=== PATIENT | male | born 1960 | race Caucasian/White ===

== ENCOUNTER 2018-12-12 14:30 | Observation (INO) | payer OTHER ==
[2018-12-12] MEDS ORDERED: ASPIRIN 81 MG CHEW TAB PO ONE ×2 (15:00→17:15)
[2018-12-12 15:25] LABS: BASOPHILS % 0.4 % (0.0-1.0); EOSINOPHILS # (AUTO) 0.1 (0.0-0.4); EOSINOPHILS % 1.2 % (0.0-6.0); HEMATOCRIT 41.3 % (38.2-49.6); HEMOGLOBIN 14.2 g/dL (14.0-18.0); LYMPHOCYTES # (AUTO) 2.1 (1.0-3.2); LYMPHOCYTES % 22.6 % (18.0-39.1); MEAN CORPUSCULAR HEMOGLOBIN 32.9 pg (28-32); MEAN CORPUSCULAR HGB CONC 34.4 g/dL (31-35); MEAN CORPUSCULAR VOLUME 95.8 fL (81-99); MONOCYTES # (AUTO) 0.7 (0.2-0.8); MONOCYTES % 7.8 % (4.4-11.3); NEUTROPHILS # (AUTO) 6.4 (2.1-6.9); NEUTROPHILS % 67.7 % (38.7-80.0); PLATELET COUNT 234 x10e3/uL (140-360); RED BLOOD COUNT 4.31 x10e6/uL (4.3-5.7); RED CELL DISTRIBUTION WIDTH 12.6 % (11.7-14.4)
[2018-12-12 15:26] LABS: BILIRUBIN,URINE NEGATIVE (NEGATIVE); CLARITY,URINE CLEAR (CLEAR); COLOR,URINE YELLOW (YELLOW); KETONES,URINE NEGATIVE (NEGATIVE); LEUKOCYTE ESTERASE ,URINE NEGATIVE (NEGATIVE); NITRITE,URINE NEGATIVE (NEGATIVE); PROTEIN,URINE DIPSTICK NEGATIVE (NEGATIVE); URINE UROBILINOGEN 0.2 mg/dL (0.2 - 1)
[2018-12-12 15:41] LABS: INR 0.94; PARTIAL THROMBOPLASTIN TIME 28.1 seconds (23.8-35.5); PROTHROMBIN TIME 13.1 seconds (11.9-14.5)
[2018-12-12 15:49] LABS: EPITHELIAL CELLS,URINE FEW /LPF; RBC,URINE 0-5 /HPF (0-5); TRANSITIONAL EPI CELLS,URINE RARE; WBC,URINE (MAN) 0-5 /HPF (0-5)
[2018-12-12 15:53] LABS: ALANINE AMINOTRANSFERASE 19 IU/L (0-55); ALBUMIN 4.2 g/dL (3.5-5.0); ALBUMIN/GLOBULIN RATIO 1.4 (0.8-2.0); ALKALINE PHOSPHATASE 86 IU/L (40-150); ANION GAP 12.4 mmol/L (8-16); BLOOD UREA NITROGEN 12 mg/dL (7-26); BUN/CREATININE RATIO 11 (6-25); CALCIUM 9.7 mg/dL (8.4-10.2); CARBON DIOXIDE 27 mmol/L (22-29); CHLORIDE 101 mmol/L (98-107); CREATINE KINASE 112 IU/L (30-200); CREATININE, SERUM 1.09 mg/dL (0.72-1.25); EST GLOMERULAR FILTRATION RATE > 60 ML/MIN (60-); GLUCOSE 103 mg/dL (74-118); MAGNESIUM 2.2 MG/DL (1.3-2.1); POTASSIUM 3.4 mmol/L (3.5-5.1); SODIUM 137 mmol/L (136-145)
--- NOTE | 2018-12-12 15:58 | Diagnostic Imaging Report ---
Chest, 1 view, 12/12/2018. History: Left-sided chest pain. Comparison: None available. Findings: The cardiomediastinal silhouette and pulmonary vasculature are within normal limits for a portable exam. There is no focal consolidation or pleural effusion. There are no acute osseous or soft tissue abnormalities. Impression: No acute cardiopulmonary abnormality. Signed by: Jose Gonzalez on 12/12/2018 3:55 PM
[2018-12-12] MEDS ORDERED: FAMOTIDINE 20 MG/2 ML VIAL IV SCH (17:15)
[2018-12-12] MEDS ORDERED: NITROGLYCERIN 0.4 MG SUBL SL PRN (17:15)
[2018-12-12] MEDS ORDERED: ASPIR 8181 MG PO (17:53)
[2018-12-12] MEDS ORDERED: BYSTOLIC2.5 MG PO (17:53)
[2018-12-12] MEDS ORDERED: LEVOTHYROXINE100 MCG PO (17:53)
[2018-12-12] MEDS ORDERED: CRESTOR5 MG PO (17:53)
[2018-12-12] MEDS ORDERED: ALFUZOSIN HCL10 MG PO (17:53)
--- NOTE | 2018-12-12 19:04 | NUR ---
Walking rounds with ERLINDA Wellington. Patient in no distress at this time.
[2018-12-12 23:45] LABS: CREATINE KINASE 91 IU/L (30-200)
--- NOTE | 2018-12-13 | NUR ---
pt moved to room 4, air mattress placed on bed for comfort, denies any chest pain or sob, states feels much better. awake alert skin w/d resp nonlab. nad noted.
--- NOTE | 2018-12-13 04:45 | NUR ---
resting with eyes closed, easily aroused, skin w/d resp nonlab. nad noted. am labs collected and sent
--- NOTE | 2018-12-13 06:59 | NUR ---
REPORT TO JANINERN
[2018-12-13 07:29] LABS: CREATINE KINASE 97 IU/L (30-200)
--- NOTE | 2018-12-13 08:58 | NUR ---
Spoke to Dr. Hale per request of Dr. Castorena to schedule stress today. Per Dr. Hale, he's in the hospital now and will be in to see patient shortly to decide
[2018-12-13] MEDS ORDERED: FAMOTIDINE 20 MG/2 ML VIAL IV SCH (09:00)
[2018-12-13] MEDS ORDERED: REGADENOSON 0.4 MG/5 ML SYR IV ONE (09:13)
--- NOTE | 2018-12-13 09:24 | NUR ---
Patient sent for stress test; consent place on chart
--- NOTE | 2018-12-13 11:22 | NUR ---
Patient not back from stress test yet. awaiting return
--- NOTE | 2018-12-13 11:45 | NUR ---
REPORT RECEIVED FROM ERLINDA FOURNIER. PT REMAINS IN RADIOLOGY AT THIS TIME.
--- NOTE | 2018-12-13 12:30 | NUR ---
PT IN ROOM AT THIS TIME, RESTING IN BED, NO NEEDS VOICED AT THIS TIME, DENIES PAIN, BREATHING EVEN/UNLABORED.
--- NOTE | 2018-12-13 13:10 | NUR ---
PT GIVEN ICE WATER PER REQUEST AT THIS TIME.
--- NOTE | 2018-12-13 15:19 | History and Physical ---
CHIEF COMPLAINT: Chest pain. HISTORY OF PRESENT ILLNESS: Mr. Lopez is a 58-year-old man with history of hypertension, dyslipidemia, former smoker, and reported history of prior NM without any coronary angiography or intervention approximately 5 years ago per the patient as the patient was having rash at that time and physician reportedly was concerned about iodine related side effects, presents to [facility] with complaints of chest discomfort. Symptoms are occurring at rest, feeling burning and sensation moderate in severity, localized to the chest, nonradiating. No associated complaints including shortness of breath, diaphoresis, or nausea. No improvement or worsening with modifying factors. Denies any associated effect of inspiration, cough, position changes, meals, or exertion. He feels better currently. REVIEW OF SYSTEMS: Twelve-system review negative except for as noted above. PAST MEDICAL HISTORY: Hypertension and dyslipidemia. SOCIAL HISTORY: Former smoker. No alcohol or drugs. ALLERGIES: INCLUDE MYESHA INHIBITORS, PENICILLIN, ZETIA, BETA-BLOCKERS LIKE ATENOLOL AND CARVEDILOL, TYLENOL, CELECOXIB, CLINDAMYCIN, ARBS, STATINS, AND SULFAS. SPECIFIC ALLERGIC REACTIONS ARE NOT REPORTED. PHYSICAL EXAMINATION: VITAL SIGNS: Temperature 98.5, heart rate 61, respiratory rate 13, blood pressure 120/68, and O2 saturation 99%. GENERAL: In no acute distress, alert. NECK: No JVD. CHEST: Clear to auscultation. CARDIOVASCULAR: Regular rate and rhythm. Normal S1 and S2. No S3 or S4. ABDOMEN: Soft, nontender, and nondistended. EXTREMITIES: No cyanosis, clubbing, or edema. SKIN: Intact and dry. NEUROLOGIC: Grossly nonfocal. CARDIOVASCULAR MEDICATIONS: Reviewed: 1. Nitroglycerin 0.5 mg every 5 minutes p.r.n. sublingual for chest pain, maximum three doses, currently none today. Did receive one yesterday. 2. Aspirin 81 mg. 3. Pepcid. STUDIES: EKG reviewed. X-RAYS AND LABS: No acute cardiopulmonary abnormality on x-ray. White blood cells 9.4, hemoglobin 14.2, and platelets 234. INR 0.9. Sodium 137, potassium 3.4, chloride 101, bicarbonate 27, BUN 12, creatinine 1.09, AST 17, and ALT 19. Serial troponins negative x3. BNP 23. TSH 0.8. LDL 59, HDL 38, triglycerides 85, and total cholesterol 114. ASSESSMENT: 1. Chest pain, atypical. 2. Hypertension. 3. Dyslipidemia. 4. Reported history of prior myocardial infarction. 5. Multiple allergies. RECOMMENDATIONS: 1. Blood pressure currently adequately controlled. 2. LDL target of 59, HDL 38 is decreased, and triglycerides are target at 85. Outpatient management encouraged for low HDL. 3. Echocardiogram has been ordered. We will review. 4. Stress test has been ordered. We will follow up results. 5. Further recommendations to follow reassuring studies. Okay to discharge with outpatient followup. MD DANN Sylvester/FOUZIA /[id number]
--- NOTE | 2018-12-13 15:19 | History and Physical ---
CONSULTING PHYSICIAN: Dr. Jean Nelson. CHIEF COMPLAINT: Chest pain. HISTORY OF PRESENT ILLNESS: The patient is a 58-year-old male with left-sided chest pain, pressure, sharp, radiating to left upper extremity. The patient is stable. No cardiac history in the past. The patient is comfortable at this time. Baseline hypertension. He has chronic lower back pain. PAST MEDICAL HISTORY: Hypertension. PAST SURGICAL HISTORY: Umbilical hernia repair, lower back surgery and knee arthroscopic surgery. HOME MEDICATION: He has taken alfuzosin, aspirin, levothyroxine, Bystolic, and Crestor. ALLERGIES: THE PATIENT IS ALLERGIC TO LISINOPRIL, ANGIOTENSIN RECEPTOR ANTAGONIST, PENICILLIN, MYESHA INHIBITOR, CELEBREX, LOSARTAN, COREG, ZETIA. SOCIAL HISTORY: The patient quit smoking approximately one year ago. He denies any alcohol consumption. FAMILY HISTORY: Significant for diabetes type 2, hypertension, and CVA. REVIEW OF SYSTEMS: Left-sided chest pain, improving. PHYSICAL EXAMINATION: VITAL SIGNS: Temperature is 98, blood pressure 120/68, pulse rate 61, respirations 18. GENERAL: The patient is not in acute distress. He is awake. HEENT: Normocephalic, atraumatic. Anicteric. NECK: Supple grossly. PULMONARY: Clear. CARDIOVASCULAR: Regular rhythm. ABDOMEN: Soft, unremarkable. Obese. EXTREMITIES: No cyanosis or edema. NEUROLOGIC: No gross focal deficit. LABORATORY DATA: WBC 9.5, hemoglobin 14.2, hematocrit 41.3, platelets is 234. Chemistry; sodium is 137, potassium 3.4, chloride 101, bicarb 27, BUN 12, creatinine 1.09, glucose is 103. TSH 0.87, LDL is 59. IMPRESSION: 1. Typical chest pain, left chest pain with left arm radiation. The patient will have a stress test today. 2. Baseline hypertension, dyslipidemia, hypothyroidism. PLAN: Continue with home medication. Stress test with Dr. Hale. We will follow up pending on stress test. MD GHAZALA Finney/SONDRAL /[id number]
--- NOTE | 2018-12-13 16:30 | NUR ---
PT VOICING CONCERNS WITH RESULTS FROM STRESS TEST AND MOVING UP TO ROOM ON OBS FLOOR. REASSURED AT THIS TIME. [facility] AND CURRENTLY AWAITING READ FROM EVENING OR NIGHT NURSE SUPERVISOR AT THIS TIME.
--- NOTE | 2018-12-13 16:55 | NUR ---
PT INFORMED HE WILL BE MOVING UP TO NEXT CLEAN BED ON INPATIENT FLOOR, VERBALIZES UNDERSTANDING.
--- NOTE | 2018-12-13 17:00 | NUR ---
KITCHEN CALLED FOR MEAL TRAY CLARIFICATION AT THIS TIME.
--- NOTE | 2018-12-13 17:55 | NUR ---
RECEIVED CALL FROM DR. NUNN, STATES PT IS STABLE FOR DISCHARGE FROM HIS EVALUATION OF THE STRESS TEST PERFORMED EARLIER TODAY.
--- NOTE | 2018-12-13 18:05 | NUR ---
CALLED DR. NJ TO INFORM OF PT STATUS, OKAY TO D/C AT THIS TIME.
[2018-12-13 18:09] VITALS: BP 146/77
--- NOTE | 2018-12-14 10:29 | Myoview Stress Test ---
DATE OF STUDY: 12/13/2018 08:59:00 Stress Test - Treadmill ONLY INTERPRETING AND SUPERVISING PHYSICIAN: Jean Nelson MD INDICATION: Chest pain. INTERPRETATION: At rest, heart rate was 68 and blood pressure 147/76. Resting EKG reveals normal sinus rhythm with poor R-wave progression in precordial leads. The patient underwent Herb protocol treadmill stress test. After a total of 4 minutes and 46 seconds of Herb protocol, the patient achieved a peak heart rate of 144 beats per minute and a peak blood pressure of 172/88. The patient achieved 7 METS and heart rate achieved was 89% of maximum predicted. There were no significant ST changes or arrhythmias throughout stress or recovery. Myocardial perfusion reveals normal rest and stress perfusion. Gated images demonstrate preserved left ventricular systolic function, normal regional wall motion, and left ventricular ejection fraction of 61%. CONCLUSION: 1. Normal hemodynamic response to treadmill stress test with fair exercise capacity achieving 7 METS. 2. Normal electrocardiographic response to treadmill stress. 3. Normal myocardial perfusion at rest and stress. 4. Preserved left ventricular systolic function with LVEF of 61%. Jean Nelson MD AFV/MODL /[id number]
--- NOTE | 2018-12-14 16:46 | Discharge Summary ---
CONSULTANTS: Dr. Nelson. FINAL DIAGNOSES: 1. Atypical chest pain associated with multiple risk factors. 2. Status post nuclear stress test negative. SUMMARY: The patient is a pleasant 58-year-old male with hypertension, dyslipidemia, came in with left-sided chest pain. The patient was seen by Dr. Hale. Echocardiogram showed normal ejection fraction. The patient underwent a nuclear stress test, done by Dr. Hale and it was unremarkably normal. The patient is stable. He was discharged home. The patient was instructed to follow up with his family doctor for adjustment of his medication if needed. MD GHAZALA Finney/FOUZIA /[id number]
== END 2018-12-13 18:28 | disposition home or self-care (01) ==
LOC: ER 14:30 → ERHOLD 17:38
PROVIDERS: ADMIT Internal Medicine; ATTEND Internal Medicine
DX: R07.89 Other chest pain (principal); E78.5 Hyperlipidemia, unspecified; E03.9 Hypothyroidism, unspecified; Z87.891 Personal history of nicotine dependence; I25.2 Old myocardial infarction; Z88.6 Allergy status to analgesic agent; Z88.1 Allergy status to other antibiotic agents; Z88.0 Allergy status to penicillin; Z88.8 Allergy status to other drugs, medicaments and biological substances
CPT/HCPCS: 36415 ×2; 71045; 78452; 80053; 80061; 81001; 82550 ×2; 82553 ×2; 83735; 83880; 84443; 84484 ×2; 85025; 85610; 85730; 87086; 93005; 93017; 93306; 99284; A9502; G0378 ×2; J2785

== ENCOUNTER → 2019-01-15 | Day surgery (SDC) | payer MEDICARE, OTHER ==
[~2019-01-15] MED LIST: ALFUZOSIN HCL10 MG PO; ASPIR 8181 MG PO; BYSTOLIC2.5 MG PO; CRESTOR5 MG PO; FENTANYL CITRATE/PF 100MCG/2 ML INJ ONE; HYOSCYAMINE 0.125 MG TAB ONE; LEVOTHYROXINE100 MCG PO; LIDOCAINE HCL 2% LOCAL INJ 5 ML SDV VIAL INJ ONE; MIDAZOLAM HCL 2 MG/2 ML VIAL ONE; PROPOFOL IV EMULSION 10 MG/ML 50 ML VIAL ONE; [UNRECOGNIZED DRUG - OTHER] OP
--- OUTSIDE RECORDS SUMMARY | 2019-01-15 11:44 | XMS REPORT ---
Author Author [facility] Address Unknown Phone Unavailable Care Team Providers Care Toby Maker Name Role Phone DENIS NJ Unavailable Unavailable Problems This patient has no known problems. Allergies, Adverse Reactions, Alerts This patient has no known allergies or adverse reactions. Medications This patient has no known medications. Results Test Description Test Time Test Comments Text Results Atomic Results Result Comments Stress Test - Treadmill ONLY 2018-12-14 09:03:00 [place] [address] Patient Name : ROBYN BRIDGES MR #: [id number] : 1960 Age/Sex: 58/M Adm Physician : DENIS NJ MD Admit Date : 12/12/18 Location : [facility] Room/Bed : [place] [address] _ REPORT: Myoview Stress Test DATE OF STUDY: 12/13/2018 08:59:00 Stress Test - Treadmill ONLY INTERPRETING AND SUPERVISING PHYSICIAN: Jean Nelson MD INDICATION: Chest pain. INTERPRETATION: At rest, heart rate was 68 and blood pressure 147/76. Resting EKG reveals normal sinus rhythm with poor R- wave progression in precordial leads. The patient underwent Herb protocol treadmill stress test. After a total of 4 minutes and 46 seconds of Herb protocol, the patient achieved a peak heart rate of 144 beats per minute and a peak blood pressure of 172/88. The patient achieved 7 METS and heart rate achieved was 89% of maximum predicted. There were no significant ST changes or arrhythmias throughout stress or recovery. Myocardial perfusion reveals normal rest and stress perfusion. Gated images demonstrate preserved left ventricular systolic function, normal regional wall motion, and left ventricular ejection fraction of 61%. CONCLUSION: 1. Normal hemodynamic response to treadmill stress test with fair exercise capacity achieving 7 METS. 2. Normal electrocardiographic response to treadmill stress. 3. Normal myocardial perfusion at rest and stress. 4. Preserved left ventricular systolic function with LVEF of 61%. Jean Nelson MD AFV/FOUZIA /[id number] Signature Date Dictated By: JEAN NEWBERRY MD Transcribed By: MODL on 12/14/18 <Electronically signed by JEAN NEWBERRY MD><<Signature on File>>12/15/18 1550 COPY TO: CHEST SINGLE (PORTABLE) 2018-12-12 15:55:00 [place] [id number] Patient Name: ROBYN BRIDGES MR #: [id number] : 1960 Age/Sex: 58/M Req #: [id number] Adm Physician: Ordered by: AYAN MIDDLETON [employer] Report #: [id number] Location: ER Room/Bed: Procedure: [id number] DX/CHEST SINGLE (PORTABLE) Exam Date: 12/12/18 Exam Time: 1510 REPORT STATUS: Signed Chest, 1 view, 12/12/2018. History: Left- sided chest pain. Comparison: None available. Findings: The cardiomediastinal silhouette and pulmonary vasculature are within normal limits for a portable exam. There is no focal consolidation or pleural effusion. There are no acute osseous or soft tissue abnormalities. Impression: No acute cardiopulmonary abnormality. Signed by: Ayan Gonzalez on 12/12/2018 3:55 PM Dictated By: AYAN GONZALEZ MD 1556 Transcribed By: NAYELY on 12/12/18 4338 COPY TO: AYAN MIDDLETON NP
[2019-01-15 18:00] VITALS: BP 139/86
--- NOTE | 2019-01-15 19:23 | Operative Report ---
DATE OF PROCEDURE: 01/15/2019 SURGEON: Sid Garland MD PROCEDURES: EGD with biopsies and a colonoscopy with polypectomy. INDICATIONS FOR EGD: History of heartburn, indigestion, bloating. INDICATION FOR COLONOSCOPY: Colorectal cancer screening. MEDICATIONS: The patient was done under MAC, please see anesthesiologist's note. PROCEDURE #1: With the patient in the left lateral decubitus position, flexible fiberoptic Olympus gastroscope was introduced into the esophagus under direct visualization without any difficulty. There was some minute nodule noted just below the upper esophageal sphincter that was biopsied. The mucosa overlying the distal esophagus revealed some patchy erythema. The minimal nodularity was noted at the GE junction that was biopsied. The scope was then advanced with ease into the stomach. Mucosa overlying the antrum and the body revealed some diffuse erythema and moderate edema and biopsies were obtained and sent to stain for Helicobacter pylori. The pylorus was of normal contour and shape, it was intubated with ease and the scope was advanced all the way to the second portion of the duodenum. The scope was then withdrawn slowly. Mucosa overlying the second portion of the duodenum as well as the duodenal bulb appeared to be within normal limits. The scope was then withdrawn back into the stomach and retroflexed. Mucosa overlying the fundus and cardia appeared to be within normal limits. The scope was then straightened out, it was subsequently withdrawn. The patient tolerated procedure well. IMPRESSION: 1. Minute nodule in the cervical esophagus, biopsied. 2. Distal esophagitis, mild. 3. Minimal nodularity, GE junction biopsied. 4. Gastritis, biopsied, biopsies sent to stain for Helicobacter pylori. PLAN: Follow up histology. Initiate Protonix 40 mg one p.o. q.a.m. a.c. PROCEDURE #2: The patient was then turned around. After adequate lubrication of the anal canal, the flexible fiberoptic Olympus colonoscope was inserted into the rectum with ease and advanced all the way to the cecum. The scope was then withdrawn slowly. Mucosa overlying the cecum and ascending colon appeared to be within normal limits. One polyp was snared. One polyp was hot biopsied from the transverse colon. The descending appeared to be within normal limits. Some diverticular disease was noted in the sigmoid colon. The rectum appeared to be within normal limits. The scope was then retroflexed into the distal rectum and small internal hemorrhoids were noted, none of which was actively bleeding. The scope was then straightened out, it was subsequently withdrawn. The patient tolerated procedure well. IMPRESSION: 1. Transverse colon polyps x2, one snared, one hot biopsied. 2. Diverticulosis. 3. Internal hemorrhoids, none actively bleeding. PLAN: Follow up histology. Initiate high-fiber, low-fat diet. Initiate high-fiber supplement. Start VSL #3 one p.o. daily. The patient might benefit from a followup colonoscopy in 5 years. Sid Garland MD [facility]/MODL /[id number] cc: Theo Zuleta MD
== END | disposition home or self-care (01) ==
LOC: OR 11:42
PROVIDERS: ATTEND Internal Medicine Gastroenterology
DX: K29.70 Gastritis, unspecified, without bleeding (principal); D12.3 Benign neoplasm of transverse colon; K22.8 Other specified diseases of esophagus; K20.9 Esophagitis, unspecified; K57.30 Diverticulosis of large intestine without perforation or abscess without bleeding; K64.8 Other hemorrhoids; E03.9 Hypothyroidism, unspecified; J44.9 Chronic obstructive pulmonary disease, unspecified; G47.33 Obstructive sleep apnea (adult) (pediatric); R07.89 Other chest pain; Z79.82 Long term (current) use of aspirin; Z68.38 Body mass index [BMI] 38.0-38.9, adult; Z87.891 Personal history of nicotine dependence
CPT/HCPCS: 43239; 45384; 45385; 88305; 88312; J2001; J2704; J2250; J3010

== ENCOUNTER 2019-10-18 07:27 | Observation (INO) | payer MEDICARE ==
[~2019-10-18] VITALS: Ht 170.2 cm; Wt 109.9 kg
[~2019-10-18 07:27] MED LIST changes: -FENTANYL CITRATE/PF 100MCG/2 ML INJ ONE; -HYOSCYAMINE 0.125 MG TAB ONE; -LIDOCAINE HCL 2% LOCAL INJ 5 ML SDV VIAL INJ ONE; -MIDAZOLAM HCL 2 MG/2 ML VIAL ONE; -PROPOFOL IV EMULSION 10 MG/ML 50 ML VIAL ONE
[2019-10-18] MEDS ORDERED: PANTOPRAZOLE 40 MG 10ML VIAL IV STA (07:46)
[2019-10-18] MEDS ORDERED: PANTOPRAZOLE SO40 MG PO (07:56)
[2019-10-18 07:59] LABS: BASOPHILS % 0.4 % (0.0-1.0); EOSINOPHILS # (AUTO) 0.1 (0.0-0.4); EOSINOPHILS % 1.2 % (0.0-6.0); HEMATOCRIT 43.2 % (38.2-49.6); HEMOGLOBIN 15.4 g/dL (14.0-18.0); LYMPHOCYTES # (AUTO) 1.9 (1.0-3.2); LYMPHOCYTES % 24.2 % (18.0-39.1); MEAN CORPUSCULAR HEMOGLOBIN 33.3 pg (28-32); MEAN CORPUSCULAR HGB CONC 35.6 g/dL (31-35); MEAN CORPUSCULAR VOLUME 93.5 fL (81-99); MONOCYTES # (AUTO) 0.6 (0.2-0.8); MONOCYTES % 7.2 % (4.4-11.3); NEUTROPHILS # (AUTO) 5.2 (2.1-6.9); NEUTROPHILS % 66.7 % (38.7-80.0); PLATELET COUNT 229 x10e3/uL (140-360); RED BLOOD COUNT 4.62 x10e6/uL (4.3-5.7); RED CELL DISTRIBUTION WIDTH 12.6 % (11.7-14.4)
[2019-10-18] MEDS ORDERED: ASPIRIN 81 MG CHEW TAB PO ONE (08:00)
--- NOTE | 2019-10-18 08:01 | NUR ---
Portabe chest xray performed.
[2019-10-18 08:10] LABS: INR 0.96; PARTIAL THROMBOPLASTIN TIME 27.6 seconds (23.8-35.5); PROTHROMBIN TIME 13.4 seconds (11.9-14.5)
--- NOTE | 2019-10-18 08:20 | Diagnostic Imaging Report ---
EXAMINATION: CHEST SINGLE (PORTABLE) INDICATION: ^CP ^[id number] ^0800 COMPARISON: 12/12/2018 FINDINGS: AP view TUBES and LINES: None. LUNGS: Lungs are well inflated. Mild bilateral hilar and lower lobes interstitial opacities. No lobar consolidations. PLEURA: No pleural effusion or pneumothorax. HEART AND MEDIASTINUM: The left ventricle appeared mildly prominent. BONES AND SOFT TISSUES: No acute osseous lesion. Soft tissues are unremarkable. UPPER ABDOMEN: No free air under the diaphragm. IMPRESSION: Prominent left ventricle with findings suggestive of central pulmonary congestion. Viral infection or small airway disease can have a similar appearance. Signed by: Dr. Tran Briscoe M.D. on 10/18/2019 8:17 AM
[2019-10-18 08:21] LABS: ALANINE AMINOTRANSFERASE 27 IU/L (0-55); ALBUMIN 4.5 g/dL (3.5-5.0); ALBUMIN/GLOBULIN RATIO 1.6 (0.8-2.0); ALKALINE PHOSPHATASE 85 IU/L (40-150); ANION GAP 12.7 mmol/L (8-16); BLOOD UREA NITROGEN 8 mg/dL (7-26); BUN/CREATININE RATIO 7 (6-25); CALCIUM 9.7 mg/dL (8.4-10.2); CARBON DIOXIDE 27 mmol/L (22-29); CHLORIDE 103 mmol/L (98-107); CREATINE KINASE 136 IU/L (30-200); EST GLOMERULAR FILTRATION RATE > 60 ML/MIN (60-); GLUCOSE 119 mg/dL (74-118); MAGNESIUM 1.9 MG/DL (1.3-2.1); POTASSIUM 3.7 mmol/L (3.5-5.1); SODIUM 139 mmol/L (136-145)
[2019-10-18] MEDS ORDERED: MORPHINE SULFATE 2 MG/ML SYR 1ML IV PRN (08:30)
[2019-10-18] MEDS ORDERED: NITROGLYCERIN 0.4 MG SUBL SL PRN (08:30)
[2019-10-18] MEDS ORDERED: ONDANSETRON HCL INJ 2MG/ML 2ML 2 MG/ML VIAL IV PRN (08:30)
[2019-10-18] MEDS ORDERED: ASPIRIN 81 MG ENTERIC COATED PO SCH (09:00)
--- NOTE | 2019-10-18 10:08 | NUR ---
ARRIVED VIA WC FROM ER, AA&OX3, RA, INTERMITTENT PAIN TO LEFT SIDE OF CHEST, ORIENTED TO ROOM AND CALL LIGHT SYSTEM, CALL LIGHT WITHIN REACH
--- NOTE | 2019-10-18 10:10 | NUR ---
WHEELED OFF UNIT VIA WC FOR CT, NO CHANGE IN CONDITION
--- NOTE | 2019-10-18 10:25 | NUR ---
BACK IN ROOM VIA WC, CALL LIGHT WITHIN REACH
--- NOTE | 2019-10-18 10:30 | NUR ---
MD DICKINSON INTO SEE PT, DISCUSSED POC
[2019-10-18 10:32] VITALS: BP 141/69
--- NOTE | 2019-10-18 10:50 | NUR ---
MD NJ INTO SEE PT, DISCUSSED POC, ORDERS NOTED
--- NOTE | 2019-10-18 11:05 | Diagnostic Imaging Report ---
EXAM: CT Chest WITH contrast 10/18/2019 10:03 AM INDICATION: ^CP ^[id number] ^1020 COMPARISON: Chest radiograph 10/18/2019 TECHNIQUE: Chest was scanned utilizing a multidetector helical scanner from the lung apex through the level of the adrenal glands after administration of IV contrast. Coronal and sagittal reformations were obtained. IV CONTRAST: 100 mL of Isovue-370 ORAL CONTRAST: None COMPLICATIONS: None RADIATION DOSE: Total DLP: 600.7 mGy*cm Estimated effective dose: (DLP x 0.015 x size factor) mSv CTDIvol has been reviewed. It is below the limits set by the Radiation Protocol Committee (RPC). FINDINGS: LINES/ TUBES: None. LUNGS AND AIRWAYS: Minimal central bilateral peribronchial wall thickening. No consolidations or groundglass opacities. Airways are patent without bronchiectasis. PLEURA: The pleural spaces are clear. HEART AND MEDIASTINUM: The thyroid gland is normal. No mediastinal, hilar or axillary lymphadenopathy. The heart is normal in size. There is no pericardial effusion. No coronary artery calcifications. The thoracic aorta and pulmonary arteries are unremarkable. UPPER ABDOMEN: Unremarkable. BONES: The visualized bony thorax is within normal limits. SOFT TISSUES: Unremarkable. IMPRESSION: Minimal bilateral central peribronchial wall thickening suggestive of bronchitis and correlates with chest x-ray findings. Otherwise, no CT findings to suggest interstitial edema, bacterial or viral pneumonia. Thoracic aorta appears unremarkable on limited evaluation. No coronary artery calcifications. Signed by: Dr. Tran Briscoe M.D. on 10/18/2019 11:02 AM
--- NOTE | 2019-10-18 11:26 | Consultation ---
DATE OF CONSULTATION: 10/18/2019 Thank you so much for asking me to see this nice man in consultation. Mr. Lopez is a pleasant 59-year-old man, who presents to the emergency room today with chest pressure. HISTORY OF PRESENT ILLNESS: The patient reports that he has had some intermittent chest pressure over the last week or so and reports that he has been "clammy" off and on for the past "couple weeks" time. He has his regular "smoker's cough," since he stopped smoking in 2018. PAST MEDICAL HISTORY: Significant for hypertension. He was hospitalized in [facility] in November 2018, with chest discomfort, at which time, he had a stress Cardiolite that was unremarkable. He also had an endoscopy with Dr. Sid Garland in December 2018, which found esophagitis, gastritis. Colonoscopy showed diverticulosis. He reports that he has been using Protonix at home. PERSONAL/SOCIAL HISTORY: He stopped smoking last year. PHYSICAL EXAMINATION: GENERAL: At this time shows a pleasant, alert man with shoulder length hair, who is comfortable. VITAL SIGNS: Blood pressure is 125/57, pulse is 60 and regular. HEAD, EYES, EARS, NOSE, and THROAT: Otherwise, unremarkable. NECK: No jugular venous distention. THORAX: Heart sounds S1, S2 are equal. No murmurs. LUNGS: Clear. ABDOMEN: Protuberant. Normal bowel sounds. Nontender. EXTREMITIES: No cyanosis, clubbing, or edema. DIAGNOSTIC DATA: EKG shows sinus rhythm without ST or T-wave changes. Initial chest x-ray suggested interstitial pattern. LABORATORY STUDIES: Show hemoglobin 15.4, white count 7.8. Chemistry showed glucose 119. Hemoglobin A1c 5.6, troponin normal. CAT scan of the chest is pending. ASSESSMENT: 1. Atypical chest symptoms. 2. History of hypertension. 3. History of gastritis and esophagitis. PLAN: Agree with continuing current medications and we will await CAT scan of the chest and echocardiogram. Thank you for asking me to see him in consultation. MD SHIRA Doyle/FOUZIA /[id number]
[2019-10-18] MEDS ORDERED: POTASSIUM CHLORIDE 20 MEQ TAB CR PO ONE (11:30)
[2019-10-18] MEDS ORDERED: FUROSEMIDE INJ 10 MG/ML 4 ML VIAL IV ONE (11:30)
--- NOTE | 2019-10-18 12:11 | History and Physical ---
CHIEF COMPLAINT: Dyspnea on exertion and lower extremity swelling, shortness of breath. HISTORY OF PRESENT ILLNESS: The patient is a 59-year-old male, no sick exposure. No traveling history. No fever or cough, came to the hospital with increasing shortness of breath and left-sided chest pain. The patient's shortness of breath associated mostly on exertion. He does have increasing lower extremity swelling with 1 to 2+ edema. The patient remained afebrile. Temperature is 98. No cough. Chest pain is occasional, especially when he exerts himself, but not at rest. WBC was normal at 7.8. The patient's chest x-ray shown that the patient may have vascular congestion. IV Lasix and potassium are given. No indication for viral, ruled out at this time. PAST MEDICAL HISTORY: The patient is stable with lower back pain with degenerative lumbar spine disease with previous back surgery, which resulted in the patient's disability. Hypertension, dyslipidemia, hypothyroidism, reflux history. SOCIAL HISTORY: The patient does not smoke or use alcohol. No regular drugs. ALLERGIES: MYESHA INHIBITOR, ARB, PENICILLIN, ACETAMINOPHEN, ATENOLOL, COREG, CELEBREX, CLINDAMYCIN. HOME MEDICATIONS: The patient is taking alfuzosin, aspirin, levothyroxine, Bystolic, Protonix, Crestor. PHYSICAL EXAMINATION: VITAL SIGNS: Temperature is 98, blood pressure 141/69, pulse rate 57, respirations 20. GENERAL: The patient is not in acute distress, awake. HEENT: Normocephalic and atraumatic. Anicteric. NECK: Supple grossly. PULMONARY: There is no coarse. There is no wheezing. There are minimal rales at the bases bilaterally. CARDIOVASCULAR: Regular rate and rhythm. ABDOMEN: Obese, otherwise unremarkable. EXTREMITIES: 1 to 2+ edema with chronic venous skin changes. NEUROLOGIC: No focal deficit. LABORATORY DATA: WBC 7.8, hemoglobin 15.4, hematocrit 33.2, platelets 229. Chemistry; sodium 139, potassium 3.7, chloride 103, bicarb 27, BUN is 8, creatinine 1.1, and glucose is 119. Coagulation is normal. Chest x-ray shows vascular congestion. CT scan of the chest is still pending. IMPRESSION: Shortness of breath on exertion associated with chest discomfort associated with lower extremity swelling. This could be secondary to congestive heart failure type will be pending on echocardiogram and CT chest pending as well. PLAN: Continue with home medication. Lasix IV one time. Potassium p.o. orally. Check imaging, check echocardiogram. Consultation with Dr. Morgan Burgos. MD GHAZALA Finney/FOUZIA /[id number]
[2019-10-18 12:29] VITALS: BP 148/70
[2019-10-18 12:45] LABS: CREATINE KINASE 124 IU/L (30-200)
--- NOTE | 2019-10-18 13:16 | NUR ---
ECHO IN PROGRESS
[2019-10-18 14:30] VITALS: BP 141/69
[2019-10-18 16:43] VITALS: BP 109/62
[2019-10-18] MEDS ORDERED: IOPAMIDOL 370 MG/ML 200 ML INFUS..BTL INJ ONE (17:44)
[2019-10-18] MEDS ORDERED: SODIUM CHLORIDE 0.9% 50ML 50 ML ONE (17:44)
[2019-10-18 18:18] LABS: CREATINE KINASE 136 IU/L (30-200)
[2019-10-18 20:00] VITALS: BP 94/51
[2019-10-19] VITALS: BP 113/56
[2019-10-19 01:46] VITALS: BP 113/56
[2019-10-19] MEDS ORDERED: LEVOTHYROXINE SODIUM 100 MCG TAB PO SCH (06:00)
[2019-10-19 06:33] LABS: BASOPHILS % 0.2 % (0.0-1.0); EOSINOPHILS # (AUTO) 0.1 (0.0-0.4); EOSINOPHILS % 1.2 % (0.0-6.0); HEMATOCRIT 43.8 % (38.2-49.6); HEMOGLOBIN 15.6 g/dL (14.0-18.0); LYMPHOCYTES # (AUTO) 1.8 (1.0-3.2); LYMPHOCYTES % 20.4 % (18.0-39.1); MEAN CORPUSCULAR HEMOGLOBIN 33.4 pg (28-32); MEAN CORPUSCULAR HGB CONC 35.6 g/dL (31-35); MEAN CORPUSCULAR VOLUME 93.8 fL (81-99); MONOCYTES # (AUTO) 0.7 (0.2-0.8); MONOCYTES % 7.4 % (4.4-11.3); NEUTROPHILS # (AUTO) 6.2 (2.1-6.9); NEUTROPHILS % 70.3 % (38.7-80.0); PLATELET COUNT 242 x10e3/uL (140-360); RED BLOOD COUNT 4.67 x10e6/uL (4.3-5.7); RED CELL DISTRIBUTION WIDTH 12.6 % (11.7-14.4)
[2019-10-19 07:02] LABS: ANION GAP 12.8 mmol/L (8-16); BLOOD UREA NITROGEN 13 mg/dL (7-26); BUN/CREATININE RATIO 11 (6-25); CALCIUM 9.4 mg/dL (8.4-10.2); CARBON DIOXIDE 29 mmol/L (22-29); CHLORIDE 102 mmol/L (98-107); CHOL/HDL RATIO 3.5 (3.9-4.7); CHOLESTEROL 129 MD/DL (0-199); CREATININE, SERUM 1.15 mg/dL (0.72-1.25); EST GLOMERULAR FILTRATION RATE > 60 ML/MIN (60-); GLUCOSE 112 mg/dL (74-118); HDL CHOLESTEROL 37 MG/DL (40-60); LDL CHOLESTEROL 72 MG/DL (60-130); POTASSIUM 3.8 mmol/L (3.5-5.1); SODIUM 140 mmol/L (136-145); TRIGLYCERIDES 100 MG/DL (0-149)
[2019-10-19] MEDS ORDERED: PANTOPRAZOLE SOD 40 MG TABEC PO SCH (07:30)
[2019-10-19 08:27] VITALS: BP 142/76
[2019-10-19 08:42] LABS: CREATINE KINASE 150 IU/L (30-200)
[2019-10-19] MEDS ORDERED: NEBIVOLOL HCL 2.5 MG TABLET PO SCH (09:00)
[2019-10-19] MEDS ORDERED: ASPIRIN 81 MG CHEW TAB PO SCH (09:00)
[2019-10-19] MEDS ORDERED: SIMVASTATIN 20 MG TAB PO SCH (09:00)
--- NOTE | 2019-10-19 09:59 | Discharge Summary ---
PRIMARY CARE PHYSICIAN: Dr. Theo Zuleta. VEGETABLE COOK: Dr. Morgan Burgos. FINAL DIAGNOSES: 1. Acute mild systolic dysfunction congestive heart failure associated with ejection fraction of 45%, associated with bilateral lower extremity edema and dyspnea on exertion, resolved. 2. Acute bronchitis, but no cough, no fever. SUMMARY: The patient is a 59-year-old male. CT scan of the chest showed possible acute bronchitis, but most likely vascular congestion with acute systolic dysfunction congestive heart failure. It is mildly with ejection fraction of 45%. The patient was given IV furosemide and he felt so much better. The patient is not having any shortness of breath. He does have some pain when he takes a deep breath, more so in the left side area. The patient has a multiple tests done including chest x-ray and CT scan of the chest. He has minimal central bilateral bronchial wall thickening. No consolidation or ground-glass opacity, however. Airway is patent without bronchiectasis. Minimal bilateral central bronchial wall thickening suggestive of bronchitis. There was no infiltrate. The patient is afebrile. He also has normal renal function tests, BUN and creatinine of 13 and 1.5. Cardiac enzymes, troponin I negative x3 sets. His CK level highest was 150. His LDL was 72. The patient's blood pressure is stable. Coagulation is normal. Overall, he is stable. He will go home today. The patient lives with his spouse. His spouse is not ill. They are isolating for the COVID-19 at home due to the recommendation from the [facility]. The patient is otherwise stable. He is agreeable to go home. Follow up with his family doctor and return to emergency room if worsening in condition. Overall, the patient is stable, discharged home with azithromycin 250 mg daily for 5 days, Lasix 40 mg daily, potassium 20 mEq daily. He will get azithromycin 500 mg x1 today and start his other medications tomorrow. The patient is otherwise stable, discharged home. MD Elizabeth FinneyT/MODL /[id number] cc: Theo Zuleta MD
[2019-10-19] MEDS ORDERED: AZITHROMYCIN 250 MG TAB PO ONE (10:00)
[2019-10-19] MEDS ORDERED: LASIX40 MG PO (11:05)
[2019-10-19] MEDS ORDERED: AZITHROMYCIN250 MG PO (11:05)
[2019-10-19] MEDS ORDERED: POTASSIUM CHLO20 ME1 PO (11:06)
[2019-10-19] MEDS ORDERED: TESSALON PERLE100 MG PO (11:08)
[2019-10-19 12:31] VITALS: BP 118/75
--- NOTE | 2019-10-19 12:31 | NUR ---
DISCHARGE INSTRUCTIONS REVIEWED WITH PT, VERBALIZED UNDERSTANDING
--- NOTE | 2019-10-19 13:04 | NUR ---
PT AMBULATED OFF UNIT FOR DISCHARGE, NO CHANGE IN CONDITION, NURSE AT SIDE
--- NOTE | 2019-10-20 16:30 | Discharge Summary ---
FINAL DIAGNOSES: 1. Atypical chest pain. 2. Acute bronchitis. 3. Acute on chronic systolic dysfunction, congestive heart failure exacerbation. SUMMARY: The patient is a 59-year-old male with ejection fraction of 45%. The patient came in with some shortness of breath especially on exertion. The patient had no shortness of breath at baseline. He also has some atypical chest discomfort, but otherwise no fever. No shortness of breath at rest. Lower extremity edema with 1+. The patient was given antibiotics and doing much better. He tolerated the Levaquin well. The patient is stable discharged home. Follow up as an outpatient for any further adjustment of medication. Please review the MAR on discharge. MD GHAZALA Finney/FOUZIA /[id number]
== END 2019-10-19 12:57 | disposition home or self-care (01) ==
LOC: ER 07:27 → ERHOLD 08:16 → MED/SURG 10:27
PROVIDERS: ADMIT Internal Medicine; ATTEND Internal Medicine
DX: I11.0 Hypertensive heart disease with heart failure (principal); R07.89 Other chest pain; J20.9 Acute bronchitis, unspecified; I50.23 Acute on chronic systolic (congestive) heart failure
CPT/HCPCS: 36415 ×2; 71045; 71260; 80048; 80053; 80061; 82550 ×2; 82553 ×2; 83036; 83735; 84484 ×2; 85025 ×2; 85610; 85730; 90471; 93005; 93306; 99284; C9113; G0009; G0378 ×2; J1940; Q9967; S0164

== ENCOUNTER → 2020-03-02 | Outpatient (CLI) | payer MEDICARE ==
[~2020-03-02] MED LIST changes: +AZITHROMYCIN250 MG PO; +LASIX40 MG PO; +PANTOPRAZOLE SO40 MG PO; +POTASSIUM CHLO20 ME1 PO; +TESSALON PERLE100 MG PO
--- NOTE | 2020-03-02 21:23 | Diagnostic Imaging Report ---
Hepatobiliary Scan with Gallbladder Ejection Fraction Clinical information: 59 M with upper abdominal pain x 2 months Technique: Following intravenous administration of 6.5 millicuries of Tc-99m mebrofenin, dynamic images of the abdomen in the anterior projection were obtained through 35 minutes. Sincalide (CCK analog) 2.5 micrograms was administered intravenously over 30 minutes with additional imaging for determination of gallbladder ejection fraction. Discussion: Perfusion of the liver is normal. Extraction of tracer by the liver parenchyma is normal. Tracer appears promptly within the biliary tract. The gallbladder begins to fill at 18 minutes post injection of tracer and fills adequately. Tracer is seen in the small bowel by 12 minutes. There is no contractile response by the gallbladder to the pharmacologic dose of sincalide. No emptying of the gallbladder occurs during the 30 minute infusion. Impression: 1. Filling of the gallbladder excludes acute cystic duct obstruction/acute cholecystitis. 2. The gallbladder ejection fraction is undefined as there is no emptying of the gallbladder during the infusion of sincalide. This absence of a contractile response to sincalide supports the clinical diagnosis of chronic cholecystitis/gallbladder dyskinesia. Signed by: Dr. Faith Harris M.D. on 03/02/2020 9:20 PM
== END ==
LOC: NM 08:56
PROVIDERS: ATTEND Internal Medicine Gastroenterology
DX: R10.10 Upper abdominal pain, unspecified (principal)
CPT/HCPCS: 78227; A9537

== ENCOUNTER → 2020-04-14 | Outpatient (CLI) | payer MEDICARE ==
[~2020-04-14] MED LIST changes: +BACTRIM DS TAB1 EACH PO; +IOPAMIDOL 370 MG/ML 200 ML INFUS..BTL INJ ONE; +SODIUM CHLORIDE 0.9% 50ML 0 ML ONE; +SODIUM CHLORIDE 0.9% 50ML 50 ML ONE
[2020-04-14 08:45] LABS: BLOOD UREA NITROGEN 7 mg/dL (7-26); BUN/CREATININE RATIO 7 (6-25); CREATININE, SERUM 0.99 mg/dL (0.72-1.25); EST GLOMERULAR FILTRATION RATE > 60 ML/MIN (60-)
--- NOTE | 2020-04-14 09:18 | Diagnostic Imaging Report ---
EXAM: CT Abdomen and Pelvis WITH intravenous contrast INDICATION: Abdominal pain COMPARISON: Chest CT 10/18/2019 TECHNIQUE: Abdomen and pelvis were scanned utilizing a multidetector helical scanner from the lung base to the pubic symphysis after administration of IV contrast. Coronal and sagittal reformations were obtained. Routine protocol was performed. Scan was performed during portal venous phase. IV CONTRAST: 100mL of Isovue 370 ORAL CONTRAST: Water RADIATION DOSE: Total DLP: 763 mGy*cm Dose modulation, iterative reconstruction, and/or weight based adjustment of the mA/kV was utilized to reduce the radiation dose to as low as reasonably achievable. FINDINGS: LOWER THORAX: Normal. HEPATOBILIARY: No focal liver lesions. No biliary ductal dilation. Status post cholecystectomy. SPLEEN: No splenomegaly. PANCREAS: No focal masses or ductal dilatation. ADRENALS: No adrenal nodules. KIDNEYS/URETERS: No hydronephrosis, stones, or solid mass lesions. Bilateral simple renal cysts. PELVIC ORGANS/BLADDER: Unremarkable. PERITONEUM / RETROPERITONEUM: No free air or fluid. LYMPH NODES: No lymphadenopathy. VESSELS: Mild scattered atherosclerotic calcifications of the nonaneurysmal abdominal aorta and major branches. GI TRACT: Diverticulosis with minimal wall thickening and fat stranding adjacent to a diverticulum at the superior aspect of the proximal sigmoid colon. No associated focal fluid collection. No bowel obstruction. Normal appendix. BONES AND SOFT TISSUES: Unremarkable. IMPRESSION: Mild uncomplicated sigmoid diverticulitis. Signed by: Cj Foley MD on 04/14/2020 9:15 AM
== END ==
LOC: CT 07:37
PROVIDERS: ATTEND Internal Medicine Gastroenterology
DX: R10.32 Left lower quadrant pain (principal)
CPT/HCPCS: 36415; 74177; 82565; 84520; Q9967

== ENCOUNTER 2020-04-17 18:10 | Emergency (ER) | payer MEDICARE ==
[~2020-04-17] VITALS: Ht 170.2 cm; Wt 109.8 kg
[~2020-04-17 18:10] MED LIST changes: -BACTRIM DS TAB1 EACH PO; -IOPAMIDOL 370 MG/ML 200 ML INFUS..BTL INJ ONE; -SODIUM CHLORIDE 0.9% 50ML 0 ML ONE; -SODIUM CHLORIDE 0.9% 50ML 50 ML ONE
[2020-04-17] MEDS ORDERED: ASPIRIN 325 MG TAB PO ONE (18:45)
[2020-04-17] MEDS ORDERED: ASPIRIN 325 MG TAB ONE (19:07)
[2020-04-17] MEDS ORDERED: BACTRIM DS TAB1 EACH PO (19:27)
--- NOTE | 2020-04-17 21:11 | Emergency Department Note ---
History of Present Illnes History of Present Illness Chief Complaint: Extremity Trauma/Pain History of Present Illness This is a 59 year old male on Cipro/Flagyl X 3 days for diverticulitis who presents with left shoulder pain. States pain is in "joint". Pain intermittent. Pain only occurs after taking Cipro and lasts for hours. No CP, SOB, N/V, diaphoresis. No similar problems in past. No current symptoms. Denies any recent trauma or heavy lifting. Not associated with neck pain or numbness, weakness, or tingling. Historian: Patient, Family Member Arrival Mode: Car Director Style Required: No Onset (how long ago): day(s) Location: left shoulder Quality: sharp Radiation: Reports non-radiation Severity: severe Duration (how long): day(s) Timing of current episode: intermittent Progression: waxing and waning Chronicity: new Context: Reports recent illness; Denies recent immobilization, Denies trauma/injury Relieving factors: none Exacerbating factors: other (cipro) Past Medical/Family History Physician Review I have reviewed the patient's past medical and family history. Any updates have been documented here. Past Medical History Recent Fever: No Clinical Suspicion of Infectio: No New/Unexplained Change in Ment: No Past Medical History: Hypertension, COPD, [place], Hypothyroidism, Hyperlipedemia Other Medical History: CATARACTS BPH UMBILICAL HERNIA ELEVATED CHOLESTEROL Past Surgical History: Cholecysctectomy, Knee Replacement, Back Surgery Other Surgery: COLONOSCOPY ENDOSCOPY UMBILICAL HERNIA BACK SURGERY KNEE ARTHROSCOPY Social History Smoking Cessation: Former smoker Counseling Performed: No Alcohol Use: None Any Illegal Drug Use: No Other Last Tetanus: UNK Any Pre-Existing Lines (PICC,: No Physical Exam Related Data Allergies: Coded Allergies: MYESHA Inhibitors (Verified Allergy, Unknown, 12/12/18) ARB-Angiotensin Receptor Antagonist (Verified Allergy, Unknown, 12/12/18) Penicillins (Verified Allergy, Unknown, 12/12/18) acetaminophen (Verified Allergy, Unknown, 12/12/18) atenolol (Verified Allergy, Unknown, 12/12/18) carvedilol (Verified Allergy, Unknown, 12/12/18) celecoxib (Verified Allergy, Unknown, 12/12/18) clindamycin (Verified Allergy, Unknown, 12/12/18) ezetimibe (Verified Allergy, Unknown, 12/12/18) ibuprofen (Verified Allergy, Unknown, 12/12/18) lisinopril (Verified Allergy, Unknown, 12/12/18) losartan (Verified Allergy, Unknown, 12/12/18) lovastatin (Verified Allergy, Unknown, 12/12/18) pravastatin (Verified Allergy, Unknown, 12/12/18) simvastatin (Verified Allergy, Unknown, 12/12/18) sulfamethoxazole (Verified Allergy, Unknown, 12/12/18) trimethoprim (Verified Allergy, Unknown, 12/12/18) Uncoded Allergies: ZOTIA (Allergy, Unknown, 12/12/18) Triage Vital Signs Vital Signs Date Time Temp Pulse Resp B/P (MAP) Pulse Ox O2 Delivery O2 Flow Rate FiO2 04/17/20 18:20 97.7 75 20 161/72 97 Room Air Physical Exam CONSTITUTIONAL Constitutional: Present well-developed, Present well-nourished HENT HENT: Present normocephalic, Present atraumatic, Present oropharynx clear/moist, Present nose normal; Absent mucosae dry HENT L/R: Present left ext ear normal, Present right ext ear normal EYES Eyes: Reports PERRL, Reports conjunctivae normal NECK Neck: Present ROM normal PULMONARY Pulmonary: Present effort normal, Present breath sounds normal CARDIOVASCULAR Cardiovascular: Present regular rhythm, Present heart sounds normal, Present capillary refill normal, Present normal rate GASTROINTESTINAL Abdominal: Present soft, Present nontender, Present bowel sounds normal GENITOURINARY SKIN Skin: Present warm, Present dry MUSCULOSKELETAL Musculoskeletal: Present ROM normal, Present other (No tenderness to chest or right shoulder. FROM of right should with and without resistance with no pain.) NEUROLOGICAL Neurological: Present alert, Present oriented x 3, Present no gross motor or sensory deficits PSYCHOLOGICAL Psychological: Present mood/affect normal, Present judgement normal Results Laboratory Laboratory comments GLU 130, K 3.4, NA 142, CL 101, Ca 9.3, Bun 11, Cr 1.0, Troponin WNL, WBC 6.4, HGB 14.3, HCT 41.9, PLT 225 Procedures 12 Lead ECG Interpretation ECG Interpretation : ECG: ECG 1 Director Style: Interpreted by ED physician Date: Apr 17, 2020 Rhythm: sinus rhythm Rate: normal BPM: 75 ST segments normal: Yes T waves normal: Yes Clinical Impression: normal ECG Assessment & Plan Medical Decision Making MDM Differential dx includes, but not limited to: ACS, [place], muscle strain/sprain, medication reaction, dissection, pneumonia, pneumothorax, pleurisy. Patient asymptomatic in ED and pain intermittent which makes some of these dx unlikely. Spoke with patient at length about risk of taking bactrim given possible allergy even though initial reaction was minor. Patient states he does not want to take CIPRO due to sever pain it causes and would rather take bactrim. Has sever PCN allergy so Augmentin not a choice. Will change cipro to bactrim and have patient take benadry with medication. Gave strict return precautions and patient to have prompt follow-up. Reassessment Reassessment patient with no symptoms while in ED. Has Sulfa and PCN allergy. States PCN allergy severe. States not sure he is really allergic to sulfur as he was taking multiple pills at the same time and stopped all of them. States reaction he had with bactrim was mild itching and rash on his forearm. Denies any throat or breathing problems on Bactrim. Assessment & Plan Final Impression: (1) Medication reaction (2) Pain in shoulder (3) Diverticulitis Depart Disposition: HOME, SELF-CARE Last Vital Signs Date Time Temp Pulse Resp B/P (MAP) Pulse Ox O2 Delivery O2 Flow Rate FiO2 04/17/20 18:20 97.7 75 20 161/72 97 Room Air Home Meds Active Scripts Sulfamethoxazole/Trimethoprim (BACTRIM DS TABLET) 1 Each Tablet, 1 TAB PO BID for 7 Days, #60 TAB Prov:MICHAEL TINAJERO MD 04/17/20 Reported Medications Benzonatate (TESSALON PERLE) 100 Mg Capsule, 100 MG PO Q6H PRN for COUGH, #30 10/19/19 Potassium Chloride (POTASSIUM CHLORIDE) 20 Meq Tab.er.prt, 20 MEQ PO DAILY, #30 10/19/19 Furosemide (LASIX) 40 Mg Tablet, 40 MG PO DAILY for 30 Days, #30 TAB 10/19/19 Azithromycin (Z-EDUARDO) 250 Mg Tablet, 250 MG PO DAILY for 5 Days, #1 UDPKT Z-Pack 10/19/19 Pantoprazole Sodium* (PROTONIX) 40 Mg Tablet., 40 MG PO, TAB 10/18/19 Levothyroxine Sodium (LEVOTHYROXINE SODIUM) 100 Mcg Tablet, 100 MCG PO DAILY 12/12/18 Aspirin (ASPIR 81) 81 Mg Tablet., 81 MG PO DAILY 12/12/18 Nebivolol Hcl (BYSTOLIC) 2.5 Mg Tablet, 5 MG PO DAILY 12/12/18 Alfuzosin Hcl (ALFUZOSIN HCL) 10 Mg Tab.er.24h, 10 MG PO HS 12/12/18 Rosuvastatin Calcium (CRESTOR) 5 Mg Tablet, 5 MG PO DAILY 12/12/18 Medications in the ED Aspirin 325 mg ONCE ONCE PO Last administered on 04/17/20at 19:02; Admin Dose 325 MG; Start 04/17/20 at 18:45; Stop 04/17/20 at 18:49; Status DC Aspirin 325 mg STK-MED ONCE .ROUTE ; Start 04/17/20 at 19:07; Stop 04/17/20 at 19:02; Status DC MICHAEL TINAJERO MD Apr 17, 2020 19:07
--- OUTSIDE RECORDS SUMMARY | 2020-04-18 16:47 | XMS REPORT | Continuity of Care Document ---
Author Author [facility] Organization [facility] Address [address] [place] [address] Phone Unavailable Care Team Providers Care Enrollment Specialist Name Role Phone MD JUSTIN HAZEL PCP SORIN CHAVEZ Attphys Unavailable [place], DENIS Attphys Unavailable [place], DENIS Admphys Unavailable Payers Payer Name Policy Type Policy Number Effective Date Expiration Date S raza [employer] [id number] 2019 00:00:00 [facility] Hum[employer] o [id number] [facility] Problems Condition Name Condition Details Condition Category Status Onset Date Resolution Date Last Treatment Date Treating Clinician Comments Source Chest pain Chest pain Problem Active C HI [facility] Shoulder pain Problem Active CH I [facility] Adverse effect of drug Problem Active [facility] Allergies, Adverse Reactions, Alerts Allergy Name Allergy Type Status Severity Reaction(s) Onset Date Inacti ve Date Treating Clinician Comments Source losartan DA Active SV 2020-03-15 00:00:[address] [facility] ARB-Angiotensin Receptor Antagonist Allergy to substance Active 2018-12-12 00:00:00 [facility] Lisinopril Allergy to substance Active 2018-12-12 00:00:00 [facility] Acetaminophen Allergy to substance Active 2018-12-12 00:00: 00 [facility] Atenolol Allergy to substance Active 2018-12-12 00:00:00 [facility] Lovastatin Allergy to substance Active 2018-12-12 00:00:00 [facility] Ibuprofen Allergy to substance Active 2018-12-12 00:00:00 [facility] Clindamycin Allergy to substance Active 2018-12-12 00:00:00 [facility] Sulfamethoxazole Allergy to substance Active 2018-12-12 00: 00:00 [facility] Trimethoprim Allergy to substance Active 2018-12-12 00:00:0 0 [facility] Pravastatin Allergy to substance Active 2018-12-12 00:00:00 [facility] Simvastatin Allergy to substance Active 2018-12-12 00:00:00 [facility] Carvedilol Allergy to substance Active 2018-12-12 00:00:00 [facility] Losartan Allergy to substance Active 2018-12-12 00:00:00 [facility] Celecoxib Allergy to substance Active 2018-12-12 00:00:00 [facility] Ezetimibe Allergy to substance Active 2018-12-12 00:00:00 [facility] ZOTIA Allergy to substance Active 2018-12-12 00:00:00 [facility] Angiotensin-converting enzyme inhibitor Allergy to substance Active 2018-12-12 00:00:00 [facility] Penicillin Allergy to substance Active 2018-12-12 00:00:00 [facility] lisinopril DA Active MO 2018-02-04 00:00:[address] [facility] atenolol DA Active MO 2018-02-04 00:00:[address] [facility] sulfamethoxazole DA Active MO 2018-02-04 00:00:[address] [facility] trimethoprim DA Active MO 2018-02-04 00:00:[address] [facility] carvedilol DA Active MO 2018-02-04 00:00:[address] [facility] tramadol DA Active MO 2018-02-04 00:00:[address] [facility] MYESHA Inhibitors DA Active SV 2015-02-22 00:00:[address] [facility] Penicillins DA Active MO 2015-02-22 00:00:[address] [facility] acetaminophen DA Active MO 2015-02-22 00:00:[address] [facility] metaxalone DA Active U 2015-02-22 00:00:[address] [facility] lovastatin DA Active MO 2015-02-22 00:00:[address] [facility] ibuprofen DA Active MO 2015-02-22 00:00:[address] [facility] clindamycin DA Active MO 2015-02-22 00:00:[address] [facility] celecoxib DA Active MO 2015-02-22 00:00:[address] [facility] ezetimibe DA Active SV 2015-02-22 00:00:[address] [facility] Social History Social Habit Start Date Stop Date Quantity Comments Source Sex Assigned At 1960 00:00:00 1960 00:00:00 Male [facility] Medications Ordered Medication Name Filled Medication Name Start Date Stop Da te Current Medication? Ordering Clinician Indication Dosage Frequency Signature (SIG) Comments Components Source Sulfamethoxazole/Trimethoprim (Bactrim Ds Tablet) 1 Ea ch TABLET Sulfamethoxazole/Trimethoprim (Bactrim Ds Tablet) 1 Each TABLET 2020-04-17 19:27:00 Yes 1 Twice A Day [facility] Alfuzosin Hcl Alfuzosin Hcl Yes 10 Bedtime [facility] Aspirin (Aspir 81) 81 Mg TABLET. Aspirin (Aspir 81) 81 Mg TABLET. Yes 81 Daily [facility] Azithromycin (Z-Trenton) 250 Mg TABLET Azithromycin (Z-Trenton) 250 Mg TABLET Yes 250 Daily [facility] Benzonatate (Tessalon Perle) 100 Mg CAPSULE Benzonatat e (Tessalon Perle) 100 Mg CAPSULE Yes 100 Every 6 Hours as needed for Co ugh [facility] Furosemide (Lasix) 40 Mg TABLET Furosemide (Lasix) 40 Mg TABLET Yes 40 Daily [facility] Levothyroxine Sodium Levothyroxine Sodium Yes 100 Daily [facility] Nebivolol Hcl (Bystolic) 2.5 Mg TABLET Nebivolol Hcl (Bystolic) 2.5 Mg TABLET Yes 5 Daily [facility] Pantoprazole Sodium (Protonix) 40 Mg TABLET. Pantopr azole Sodium (Protonix) 40 Mg TABLET. Yes 40 [facility] Potassium Chloride Potassium Chloride Yes 20 Da charity [facility] Rosuvastatin Calcium (Crestor) 5 Mg TABLET Rosuvastati n Calcium (Crestor) 5 Mg TABLET Yes 5 Daily [facility] Pozeo Pozeo 2019-10-18 00:00:00 No As Needed [facility] Vital Signs Vital Name Observation Time Observation Value Comments Source Weight 2020-04-17 18:20:00 242 [lb_av] [facility] BMI (Body Mass Index) 2020-04-17 18:20:00 37.9 kg/m2 [facility] Body Temperature 2019-10-19 12:31:00 97.1 [degF] [facility] Procedures Procedure Date / Time Performed Performing Clinician [facility] daniela Computed tomography of abdomen and pelvis with contrast 00:00:00 [facility] Computed tomography of chest with contrast 2019-10-18 00:00:00 DENIS PALACIOS [facility] Plan of Care Planned Activity Planned Date Details Comments Source Instructions Diverticulitis [facility] Instructions Joint Pain [facility] Encounters Start Date/Time End Date/Time Encounter Type Admission Type Attendi [facility] Facility Care Department Encounter ID Source 2020-04-17 18:14:00 2020-04-17 20:03:00 Departed Emergency Room [facility] [id number] [facility] 2020-04-14 07:37:00 2020-04-14 07:37:00 Registered Clinic 3 CHAVEZSORIN Baird [facility] [id number] [facility] 2020-03-02 08:56:00 2020-03-02 08:56:00 Registered Clinic 3 SORIN CHAVEZ [facility] [id number] [facility] 2019-10-18 08:16:00 2019-10-19 12:57:00 Discharged Inpatient (obs) 1 [facility] [id number] I [facility] 2019-01-15 11:42:00 2019-01-15 11:42:[address] [facility] [id number] [facility] 2018-12-12 17:38:00 2018-12-13 18:28:00 Discharged Inpatient (obs) 1 [facility] [id number] [facility] Results Test Description Test Time Test Comments Results Result Comments Source CT ABDOMEN/PELVIS W 2020-04-14 09:10:00 [place] [address] Patient Name: ROBYN BRIDGES MR #: [id number] : 1960 Age/Sex: 59/M Req #: [id number] Adm Physician: Ordered by: SORIN CHAVEZ MD Report #: [id number] Location: CT Room/Bed: Procedure: [id number] CT/CT ABDOMEN/PELVIS W Exam Date: 04/14/20 Exam Time: 0850 REPORT STATUS: Signed EXAM: CT Abdomen and Pelvis WITH intravenous contrast INDICATION: Abdominal pain COMPARISON: Chest CT 10/18/2019 TECHNIQUE: Abdomen and pelvis were scanned utilizing a multidetector helical scanner from the lung base to the pubic symphysis after administration of IV contrast. Coronal and sagittal reformations were obtained. Routine protocol was performed. Scan was performed during portal venous phase. IV CONTRAST: 100mL of Isovue 370 ORAL CONTRAST: Water RADIATION DOSE: Total DLP: 763 mGy*cm Dose modulation, iterative reconstruction, and/or weight based adjustment of the mA/kV was utilized to reduce the radiation dose to as low as reasonably achievable. FINDINGS: LOWER THORAX: Normal. HEPATOBILIARY: No focal liver lesions. No biliary ductal dilation. Status post cholecystectomy. SPLEEN: No splenomegaly. PANCREAS: No focal masses or ductal dilatation. ADRENALS: No adrenal nodules. KIDNEYS/URETERS: No hydronephrosis, stones, or solid mass lesions. Bilateral simple renal cysts. PELVIC ORGANS/BLADDER: Unremarkable. PERITONEUM / RETROPERITONEUM: No free air or fluid. LYMPH NODES: No lymphadenopathy. VESSELS: Mild scattered atherosclerotic calcifications of the nonaneurysmal abdominal aorta and major branches. GI TRACT: Diverticulosis with minimal wall thickening and fat stranding adjacent to a diverticulum at the superior aspect of the proximal sigmoid colon. No associated focal fluid collection. No bowel obstruction. Normal appendix. BONES AND SOFT TISSUES: Unremarkable. IMPRESSION: Mild uncomplicated sigmoid diverticulitis. Signed by: Char Skinner MD on 04/14/2020 9:15 AM Dictated By: CHAR SKINNER MD 4 Transcribed By: NAYELY on 04/14/20914 COPY TO: SORIN CHAVEZ MD Serum or plasma urea nitrogen measurement (mass/volume) 2019 08:05:00 Test Item Blood Urea Nitrogen (test code = 3094-0) 7 [facility] (mass/volume)2020-04-14 08:05:00* Test Item Value Reference Range Interpretation Comments Creatinine (test code = 2160-0) 0.99 0.72-1.25 [facility] urea nitrogen/creatinine mass [id number] 08:05:00* Test Item Value Reference Range Interpretation Comments BUN/Creatinine Ratio (test code = 3097-3) 7 6 [facility] filtration rate (GFR) yojvjyqfdodhe3832-74-75 08:05:00* Test Item Value Reference Range Interpretation Comments Estimat Glomerular Filtration Rate (test code = 215131903) > 60 >60 Ranges were taken from the National Kidney Disease Education Program and the Lilly ional Kidney Foundation literature.Reference ranges:60 or greater: Hblgzk55-76 ( for 3 consecutive months): Chronic kidney disease 15 or less: Kidney failureCHI [facility]stGALLBLADDER2020-08-26 13:32:00 RUN DATE: 03/17/20 [employer] PAGE 1 RUN TIME: 1332 Specimen Inqui ry RUN USER: INTERFACE PATIENT: ROBYN BRIDGES ACCT #: [id number] LOC: V.DSU U #: [id number] AGE/SX: 59/M ROOM: RE03/16/20INGRIS DR: Daniel Pastor MD : 58 BED: DIS: STATUS: [facility] TLOC: SPEC #: [id number] RECD: 03/16/20 STATUS: PRATEEK DAVALOS #: [id number] BERNADINE: 03/16/20- SUBM DR: Daniel Pastor MD ENTERED: 03/16/20 SP TYPE: GALLBLADD OTHR DR: Avi R efJustin Morales MDORDERED: GROSS COPIES TO: Self Referred Daniel Pastor MD [address] [place] [address] Justin Hazel MD [address] [place] [id number] MARKERS: ABNORMAL TISSUE, G ALLBLADDER PROCEDURES: GROSS (03/17/20-1124) TISSUES: GALLBLADDER, NOS CLINICAL HISTORY COLLECTION DATE: 03/16/20 CHRONIC CHOLECYSTIT IS FINAL DIAGNOSIS Gallbladder, cholecystectomy: CHRONIC OLVIN CYSTITIS POLYPOID CHOLESTEROLOSIS NEGATIVE FOR MALIGNANCY RRB/sm A 89241 CONTINUED ON NEXT PAGE RUN DATE: 03/17/20 [facility] PAGE 2 RUN TIME: 1332 Specimen I nquiry RUN USER: INTERFACE SPEC #: [id number] PATIENT: Elizabeth BRIDGES #[id number] (Continued) [employer] [facility] The specimen is received in formalin, labeled with the patient's name, robin d identified as "gallbladder". It consists of a previously incised gallbladde r which measures 4.5 x 2.4 x 1.3 cm. A 0.6 cm of cystic duct is attached to t he gallbladder. The serosal surface is unremarkable. No stones are found wit hin the gallbladder or within the container. The gallbladder mucosa is velvet y and has some yellow streaks as well as a couple of small areas of polypoid cholesterolosis. The gallbladder wall measures 0.15 cm in thickness with up to 0.5 cm of attached subserosal adipose tissue. Samples of the specimen are submitted for microscopic evaluation in a single cassette. GROSS PERFORMED AT [facility] [address] [place] [address] (p)[phone] MICROSCOPIC All of the stains, including any controls performed, stain appropriately. [place] ROSCOPIC PERFORMED AT [facility] [address] [place] [address] (P)[phone] PERFORMING SIT E Diagnosis performed at: [facility] [address] [facility], [place] [address] [address] Signed SIGNATURE ON FILE Agustín Hunt MD 03/17/20 1332 END OF REPORT COMPREHENSIVE METABOLIC [id number] 13:24:00* Test Item Value Reference Range Interpretation Comments SODIUM (test code = NA) 144 mmol/L 136-145 N POTASSIUM (test code = K) 4.1 mmol/L 3.5-5.1 N CHLORIDE (test code = CL) 107.0 mmol/L 98-107 N CARBON DIOXIDE (test code = CO2) 29.0 mmol/L 21-32 N ANION GAP (test code = GAP) 12.1 10-20 N GLUCOSE (test code = GLU) 96 mg/dL 74-106 N BLOOD UREA NITROGEN (test code = BUN) 11 mg/dL 7-18 N GLOMERULAR FILTRATION RATE (test code = GFR) > 60 mL/min >=60 Estimated GFR by using Modified MDRD formula.Chronic kidney disease is defined as either kidney damageor GFR <60 mL/min/1.73 m2 for >3 months. CREATININE (test code = CREAT) 1.00 mg/dL 0.7-1.3 N BUN/CREATININE RATIO (test code = BUN/CREA) 10.6 10-20 N TOTAL PROTEIN (test code = PROT) 8.1 gram/dL 6.4-8.2 N ALBUMIN (test code = ALB) 4.3 g/dL 3.4-5.0 N GLOBULIN (test code = GLOB) 3.8 gram/dL 2.7-4.2 N ALBUMIN/GLOBULIN RATIO (test code = A/G) 1.1 0.75-1.50 N CALCIUM (test code = CA) 9.5 mg/dL 8.5-10.1 N BILIRUBIN TOTAL (test code = BILT) 0.60 mg/dL 0.0-1.0 N SGOT/AST (test code = AST) 21 IUnit/L 15-37 N SGPT/ALT (test code = ALT) 34 IUnit/L 12-78 N ALKALINE PHOSPHATASE TOTAL (test code = ALKP) 89 IUnit/L 45-117 N Note change in reference range due to change in reagent. COMPREHENSIVE METABOLIC [id number] 13:15:00* Test Item Value Reference Range Interpretation Comments SODIUM (test code = NA) 144 mmol/L 136-145 N POTASSIUM (test code = K) 4.1 mmol/L 3.5-5.1 N CHLORIDE (test code = CL) 107.0 mmol/L 98-107 N CARBON DIOXIDE (test code = CO2) mmol/L 21-32 ANION GAP (test code = GAP) 10-20 GLUCOSE (test code = GLU) mg/dL 74-106 BLOOD UREA NITROGEN (test code = BUN) mg/dL 7-18 GLOMERULAR FILTRATION RATE (test code = GFR) mL/min >=60 CREATININE (test code = CREAT) mg/dL 0.7-1.3 BUN/CREATININE RATIO (test code = BUN/CREA) 10-20 TOTAL PROTEIN (test code = PROT) gram/dL 6.4-8.2 ALBUMIN (test code = ALB) g/dL 3.4-5.0 GLOBULIN (test code = GLOB) gram/dL 2.7-4.2 ALBUMIN/GLOBULIN RATIO (test code = A/G) 0.75-1.50 CALCIUM (test code = CA) mg/dL 8.5-10.1 BILIRUBIN TOTAL (test code = BILT) mg/dL 0.0-1.0 SGOT/AST (test code = AST) IUnit/L 15-37 SGPT/ALT (test code = ALT) IUnit/L 12-78 ALKALINE PHOSPHATASE TOTAL (test code = ALKP) IUnit/L 45-117 CBC W/AUTO [id number] 12:29:00* Test Item Value Reference Range Interpretation Comments WHITE BLOOD CELL (test code = WBC) 8.7 K/mm3 4.5-12.5 N RED BLOOD CELL (test code = RBC) 4.42 mill/mm3 4.0-5.8 N HEMOGLOBIN (test code = HGB) 14.8 gram/dL 13.0-17.5 N HEMATOCRIT (test code = HCT) 42.0 % 42.0-52.0 N MEAN CELL VOLUME (test code = MCV) 95.0 fL 80-98 N MEAN CELL HGB (test code = MCH) 33.5 picogram 27.0-33.0 H MEAN CELL HGB CONCETRATION (test code = MCHC) 35.2 gram/dL 33.0-36. 0 N RED CELL DISTRIBUTION WIDTH (test code = RDW) 14.0 % 11.6-16. 2 N RED CELL DISTRIBUTION WIDTH SD (test code = RDW-SD) 48.5 fL 37 .0-51.0 N PLATELET COUNT (test code = PLT) 239 K/mm3 150-450 N MEAN PLATELET VOLUME (test code = MPV) 9.2 fL 6.7-11.0 N NEUTROPHIL % (test code = NT%) 67.8 % 39.0-69.0 N IMMATURE GRANULOCYTE % (test code = IG%) 0.8 % 0.0-5.0 N LYMPHOCYTE % (test code = LY%) 22.0 % 25.0-55.0 L MONOCYTE % (test code = MO%) 7.8 % 0.0-10.0 N EOSINOPHIL % (test code = EO%) 1.4 % 0.0-5.0 N BASOPHIL % (test code = BA%) 0.2 % 0.0-1.0 N NUCLEATED RBC % (test code = NRBC%) 0.0 % 0-0 N NEUTROPHIL # (test code = NT#) 5.92 K/mm3 1.8-7.7 N IMMATURE GRANULOCYTE # (test code = IG#) 0.07 x10 3/uL 0-0.03 H LYMPHOCYTE # (test code = LY#) 1.92 K/mm3 1.0-5.0 N MONOCYTE # (test code = MO#) 0.68 K/mm3 0-0.8 N EOSINOPHIL # (test code = EO#) 0.12 K/mm3 0.0-0.5 N BASOPHIL # (test code = BA#) 0.02 K/mm3 0.0-0.2 N NUCLEATED RBC # (test code = NRBC#) 0.00 K/mm3 0.0-0.1 N CBC W/AUTO [id number] 12:28:00* Test Item Value Reference Range Interpretation Comments WHITE BLOOD CELL (test code = WBC) K/mm3 4.5-12.5 RED BLOOD CELL (test code = RBC) mill/mm3 4.0-5.8 HEMOGLOBIN (test code = HGB) 14.8 gram/dL 13.0-17.5 N HEMATOCRIT (test code = HCT) 42.0 % 42.0-52.0 N MEAN CELL VOLUME (test code = MCV) fL 80-98 MEAN CELL HGB (test code = MCH) picogram 27.0-33.0 MEAN CELL HGB CONCETRATION (test code = MCHC) gram/dL 33.0-36. 0 RED CELL DISTRIBUTION WIDTH (test code = RDW) % 11.6-16. 2 RED CELL DISTRIBUTION WIDTH SD (test code = RDW-SD) fL 37 .0-51.0 PLATELET COUNT (test code = PLT) 239 K/mm3 150-450 N MEAN PLATELET VOLUME (test code = MPV) fL 6.7-11.0 NEUTROPHIL % (test code = NT%) % 39.0-69.0 IMMATURE GRANULOCYTE % (test code = IG%) % 0.0-5.0 LYMPHOCYTE % (test code = LY%) % 25.0-55.0 MONOCYTE % (test code = MO%) % 0.0-10.0 EOSINOPHIL % (test code = EO%) % 0.0-5.0 BASOPHIL % (test code = BA%) % 0.0-1.0 NEUTROPHIL # (test code = NT#) K/mm3 1.8-7.7 LYMPHOCYTE # (test code = LY#) K/mm3 1.0-5.0 MONOCYTE # (test code = MO#) K/mm3 0-0.8 EOSINOPHIL # (test code = EO#) K/mm3 0.0-0.5 BASOPHIL # (test code = BA#) K/mm3 0.0-0.2 COVID 19 INHOUSE [id number] 12:27:00* Test Item Value Reference Range Interpretation Comments COVID 19 INHOUSE AG (test code = [id number]) NEGATIVE HEPTOBILIARY W [id number] 21:17:00 [place] [address] Patient Name: ROBYN BRIDGES MR #: [id number] : 1960 Age/Sex: 59/M Req #: [id number] Adm Physician: Ordered by: SORIN CHAVEZ MD Report #: [id number] Location: [place] Room/Bed: Procedure: [id number] NM/HEPTOBILIAR Y W PHARM Exam Date: 03/02/20 Exam Time: 942 REPORT STATUS: Signed Hepatobiliary Sc an with Gallbladder Ejection Fraction Clinical information: 59 M with upper abdominal pain x 2 months Technique: Following intravenous administration of 6.5 millicuries of Tc-99m mebrofenin, dynamic images of the abdomen in the anterior projection were obtained through 35 minutes. Sincalide (CCK analog) 2.5 micrograms was administered intravenously over 30 minutes with additional imaging for determination of gallbladder ejection fraction. Discussion: P erfusion of the liver is normal. Extraction of tracer by the liver parenchyma is normal. Tracer appears promptly within the biliary tract. The gallbladde r begins to fill at 18 minutes post injection of tracer and fills adequately. Tracer is seen in the small bowel by 12 minutes. There is no contractile res ponse by the gallbladder to the pharmacologic dose of sincalide. No emptying of the gallbladder occurs during the 30 minute infusion. Impression: 1. Filling of the gallbladder excludes acute cystic duct obstruction/acute cholecystitis. 2. The gallbladder ejection fraction is undefined as there is no emptying of the gallbladder during the infusion of sincalide. This abse nce of a contractile response to sincalide supports the clinical diagnosis of chronic cholecystitis/gallbladder dyskinesia. Signed by: Dr. Alfonzo Harris M.D. on 03/02/2020 9:20 PM Dictated By: ALFONZO HARRIS MD Electronically Si gned By: ALFONZO HARRIS MD on 03/02/202119 Transcribed By: NAYELY on 03/02/20 COPY TO: SOIRN CHAVEZ MD Creatine Kinase [id number] 08:53:00* Test Item Value Reference Range Interpretation Comments Creatine Kinase MB (test code = 84168-2) 1.90 0-5.0 [facility] [id number] 08:53:00* Test Item Value Reference Range Interpretation Comments Troponin I (test code = IHX1707) < 0.001 0-0.300 [facility] TexasCreatine [id number] 08:44:00* Test Item Value Reference Range Interpretation Comments Creatine Kinase (test code = 2157-6) 150 30-200 [facility] [id number] 07:05:00* Test Item Value Reference Range Interpretation Comments Sodium Level (test code = 2951-2) 140 136-145 [facility]Potassium [id number] 07:05:00* Test Item Value Reference Range Interpretation Comments Potassium Level (test code = 2823-3) 3.8 3.5-5.1 [facility] TexasChloride [id number] 07:05:00* Test Item Value Reference Range Interpretation Comments Chloride Level (test code = 2075-0) 102 98-107 [facility] TexasCarbon Dioxide [id number] 07:05:00* Test Item Value Reference Range Interpretation Comments Carbon Dioxide Level (test code = 2028-9) 29 - [facility] TexasAnion [id number] 07:05:00* Test Item Value Reference Range Interpretation Comments Anion Gap (test code = 52993-2) 12.8 8-16 [facility] TexasBlood Urea [id number] 07:05:00* Test Item Value Reference Range Interpretation Comments Blood Urea Nitrogen (test code = 3094-0) 13 7-26 [facility] TexasCreatinine2020-03-29 07:05:00* Test Item Value Reference Range Interpretation Comments Creatinine (test code = 2160-0) 1.15 0.72-1.25 [facility] TexasBUN/Creatinine [id number] 07:05:00* Test Item Value Reference Range Interpretation Comments BUN/Creatinine Ratio (test code = 3097-3) 11 6-25 [facility] Texas[facility]at Glomerular Filtration Rate 2019-10-19 07:05:00* Test Item Value Reference Range Interpretation Comments Estimat Glomerular Filtration Rate (test code = 854307925) > 60 >60 Ranges were taken from the National Kidney Disease Education Program and the [facility] Kid[facility] Foundation literature.Reference ranges:60 or greater: Yobmik41-55 ( for 3 consecutive months): Chronic kidney disease 15 or less: Kidney failureWoman's Hospital of TexasGlucose Lejqa0420-43-24 07:05:00* Test Item Value Reference Range Interpretation Comments Glucose Level (test code = BXZ7325) 112 74-118 [facility] TexasCalcium [id number] 07:05:00* Test Item Value Reference Range Interpretation Comments Calcium Level (test code = 79930-7) 9.4 8.4-10.2 [facility] TexasTriglycerides [id number] 07:05:00* Test Item Value Reference Range Interpretation Comments Triglycerides Level (test code = 2571-8) 100 0-149 [facility] TexasCholesterol [id number] 07:05:00* Test Item Value Reference Range Interpretation Comments Cholesterol Level (test code = 2093-3) 129 0-199 Less than 200 mg/dL Low Bmlz911 - 239 mg/dL Borderline Jknh894 m g/dl and greater High Risk [facility] TexasLDL [id number] 07:05:00* Test Item Value Reference Range Interpretation Comments LDL Cholesterol (test code = 2089-1) 72 60-130 [facility] TexasHDL Dvawcnkldet4371-06-30 07:05:00* Test Item Value Reference Range Interpretation Comments HDL Cholesterol (test code = 2085-9) 37 40-60 L [facility] TexasCholesterol/HDL Qvvvz6212-11-20 07:05:00 * Test Item Value Reference Range Interpretation Comments Cholesterol/HDL Ratio (test code = 9830-1) 3.5 3.9-4.7 L [facility] TexasWhite Blood [id number] 07:00:00* Test Item Value Reference Range Interpretation Comments White Blood Count (test code = 6690-2) 8.83 4.8-10.8 [facility] TexasRed Blood [id number] 07:00:00* Test Item Value Reference Range Interpretation Comments Red Blood Count (test code = 789-8) 4.67 4.3-5.7 [facility] TexasHemoglobin2020-03-29 07:00:00* Test Item Value Reference Range Interpretation Comments Hemoglobin (test code = 68412-9) 15.6 14.0-18.0 [facility] TexasHematocrit2020-03-29 07:00:00* Test Item Value Reference Range Interpretation Comments Hematocrit (test code = 4544-3) 43.8 38.2-49.6 [facility] TexasMean Corpuscular Imarmj8701-73-14 07:00:00* Test Item Value Reference Range Interpretation Comments Mean Corpuscular Volume (test code = 787-2) 93.8 81-99 [facility] TexasMean Corpuscular Hrudifvsff2740-99-74 07:00:00* Test Item Value Reference Range Interpretation Comments Mean Corpuscular Hemoglobin (test code = 785-6) 33.4 28-32 H [facility] TexasMean Corpuscular Hemoglobin Concent 2019-10-19 07:00:00* Test Item Value Reference Range Interpretation Comments Mean Corpuscular Hemoglobin Concent (test code = 786-4) 35.6 31-35 H [facility] TexasRed Cell Distribution Ebrmx7027-80-51 07:00:00* Test Item Value Reference Range Interpretation Comments Red Cell Distribution Width (test code = 98015-5) 12.6 11.7 -14.4 [facility] TexasPlatelet Hblct3525-27-61 07:00:00* Test Item Value Reference Range Interpretation Comments Platelet Count (test code = 777-3) 242 140-360 [facility] TexasNeutrophils (%) (Auto)2019-10-19 07:00:00 * Test Item Value Reference Range Interpretation Comments Neutrophils (%) (Auto) (test code = 58056-5) 70.3 38.7-80.0 [facility] TexasLymphocytes (%) (Auto)2019-10-19 07:00:00 * Test Item Value Reference Range Interpretation Comments Lymphocytes (%) (Auto) (test code = 736-9) 20.4 18.0-39.1 [facility] TexasMonocytes (%) (Auto)2019-10-19 07:00:00* Test Item Value Reference Range Interpretation Comments Monocytes (%) (Auto) (test code = 5905-5) 7.4 4.4-11.3 [facility] TexasEosinophils (%) (Auto)2019-10-19 07:00:00 * Test Item Value Reference Range Interpretation Comments Eosinophils (%) (Auto) (test code = 713-8) 1.2 0.0-6.0 [facility] TexasBasophils (%) (Auto)2019-10-19 07:00:00* Test Item Value Reference Range Interpretation Comments Basophils (%) (Auto) (test code = 706-2) 0.2 0.0-1.0 [facility] TexasIM GRANULOCYTES %2019-10-19 07:00:00* Test Item Value Reference Range Interpretation Comments IM GRANULOCYTES % (test code = IM GRANULOCYTES %) 0.5 0.0- 1.0 [facility] TexasNeutrophils # (Auto)2019-10-19 07:00:00* Test Item Value Reference Range Interpretation Comments Neutrophils # (Auto) (test code = 751-8) 6.2 2.1-6.9 [facility] TexasLymphocytes # (Auto)2019-10-19 07:00:00* Test Item Value Reference Range Interpretation Comments Lymphocytes # (Auto) (test code = 81194-0) 1.8 1.0-3.2 [facility] TexasMonocytes # (Auto)2019-10-19 07:00:00* Test Item Value Reference Range Interpretation Comments Monocytes # (Auto) (test code = 742-7) 0.7 0.2-0.8 [facility] TexasEosinophils # (Auto)2019-10-19 07:00:00* Test Item Value Reference Range Interpretation Comments Eosinophils # (Auto) (test code = 711-2) 0.1 0.0-0.4 [facility] TexasBasophils # (Auto)2019-10-19 07:00:00* Test Item Value Reference Range Interpretation Comments Basophils # (Auto) (test code = 704-7) 0.0 0.0-0.1 [facility] TexasAbsolute Immature Granulocyte (auto 2019-10-19 07:00:00* Test Item Value Reference Range Interpretation Comments Absolute Immature Granulocyte (auto (dayan t code = Absolute Immature Granulocyte (auto) 0.04 0-0.1 [facility] TexasBlood leukocytes automated count (number/volume)2019-10-19 05:33:00* Test Item Value Reference Range Interpretation Comments White Blood Count (test code = 6690-2) 8.83 4.8-10.8 [facility] erythrocytes automated count (number/volume)2019-10-19 05:33:00* Test Item Value Reference Range Interpretation Comments Red Blood Count (test code = 789-8) 4.67 4.3-5.7 [facility] TexasBlood hemoglobin measurement (moles/volume)2019-10-19 05:33:00* Test Item Value Reference Range Interpretation Comments Hemoglobin (test code = 89906-7) 15.6 14.0-18.0 [facility] TexasAutomated blood hematocrit (volume fraction)2019-10-19 05:33:00* Test Item Value Reference Range Interpretation Comments Hematocrit (test code = 4544-3) 43.8 38.2-49.6 [facility] TexasAutomated erythrocyte mean corpuscular jqhvdn2821-80-28 05:33:00* Test Item Value Reference Range Interpretation Comments Mean Corpuscular Volume (test code = 787-2) 93.8 81-99 [facility] TexasAutomated erythrocyte mean corpuscular hemoglobin (mass per erythrocyte)2019-10-19 05:33:00* Test Item Value Reference Range Interpretation Comments Mean Corpuscular Hemoglobin (test code = 785-6) 33.4 28-32 [facility] TexasAutomated erythrocyte mean corpuscular hemoglobin concentration measurement (mass/volume)2019-10-19 05:33:00* Test Item Value Reference Range Interpretation Comments Mean Corpuscular Hemoglobin Concent (test code = 786-4) 35.6 31-35 [facility] TexasRDW UwbQv-Wqy8790-42-29 05:33:00* Test Item Value Reference Range Interpretation Comments Red Cell Distribution Width (test code = 09298-2) 12.6 11.7 -14.4 [facility] TexasAutomated blood platelet count (count/volume)2019-10-19 05:33:00* Test Item Value Reference Range Interpretation Comments Platelet Count (test code = 777-3) 242 140-360 [facility] TexasAutomated blood segmented neutrophil count as percentage of total kokkolpwem3178-57-33 05:33:00* Test Item Value Reference Range Interpretation Comments Neutrophils (%) (Auto) (test code = 05707-8) 70.3 38.7-80.0 [facility] TexasAutomated blood lymphocyte count as percentage ot total saubmoppqm2765-38-39 05:33:00* Test Item Value Reference Range Interpretation Comments Lymphocytes (%) (Auto) (test code = 736-9) 20.4 18.0-39.1 [facility] TexasAutomated blood monocyte count as percentage of total apiuhdmckm1039-92-64 05:33:00* Test Item Value Reference Range Interpretation Comments Monocytes (%) (Auto) (test code = 5905-5) 7.4 4.4-11.3 [facility] TexasAutomated blood eosinophil count as percentage of total qykvskjvlm8244-09-15 05:33:00* Test Item Value Reference Range Interpretation Comments Eosinophils (%) (Auto) (test code = 713-8) 1.2 0.0-6.0 [facility] TexasAutomated blood basophil count as percentage of total mqaydafuxb6729-04-35 05:33:00* Test Item Value Reference Range Interpretation Comments Basophils (%) (Auto) (test code = 706-2) 0.2 0.0-1.0 [facility] TexasFluoroscopic procedure less than one hour leirdwqe6919-05-90 05:33:00* Test Item Value Reference Range Interpretation Comments IM GRANULOCYTES % (test code = IM GRANULOCYTES %) 0.5 0.0- 1.0 [facility] TexasAutomated blood neutrophil count 2019-10-19 05:33:00* Test Item Value Reference Range Interpretation Comments Neutrophils # (Auto) (test code = 751-8) 6.2 2.1-6.9 [facility] TexasBlood lymphocytes count (number/volume) 2019-10-19 05:33:00* Test Item Value Reference Range Interpretation Comments Lymphocytes # (Auto) (test code = 24152-2) 1.8 1.0-3.2 [facility] TexasBlood monocytes automated count (number/volume)2019-10-19 05:33:00* Test Item Value Reference Range Interpretation Comments Monocytes # (Auto) (test code = 742-7) 0.7 0.2-0.8 [facility] TexasAutomated blood eosinophil count 2019-10-19 05:33:00* Test Item Value Reference Range Interpretation Comments Eosinophils # (Auto) (test code = 711-2) 0.1 0.0-0.4 [facility] TexasAutomated blood basophil count (count/volume)2019-10-19 05:33:00* Test Item Value Reference Range Interpretation Comments Basophils # (Auto) (test code = 704-7) 0.0 0.0-0.1 [facility] TexasFluoroscopic procedure less than one hour zyeuwppe7807-02-02 05:33:00* Test Item Value Reference Range Interpretation Comments Absolute Immature Granulocyte (auto (dayan t code = Absolute Immature Granulocyte (auto) 0.04 0-0.1 [facility] sodium measurement (moles/volume)2019-10-19 05:33:00* Test Item Value Reference Range Interpretation Comments Sodium Level (test code = 2951-2) 140 136-145 [facility]ererum [facility] plasma potassium measurement (moles/volume)2019-10-19 05:33:00* Test Item Value Reference Range Interpretation Comments Potassium Level (test code = 2823-3) 3.8 3.5-5.1 [facility]ererum [facility] plasma chloride measurement (moles/volume)2019-10-19 05:33:00* Test Item Value Reference Range Interpretation Comments Chloride Level (test code = 2075-0) 102 98-107 [facility]ererum [facility] plasma carbon dioxide, total measurement (moles/volume)2019-10-19 05:33:00* Test Item Value Reference Range Interpretation Comments Carbon Dioxide Level (test code = 2028-9) 29 22-29 [facility]ererum or plasma anion mjv2590-54-22 05:33:00* Test Item Value Reference Range Interpretation Comments Anion Gap (test code = 42571-7) 12.8 8-16 [facility] TexasGlucose gaayeehscco7781-89-79 05:33:00* Test Item Value Reference Range Interpretation Comments Glucose Level (test code = VGT1040) 112 74-118 [facility]ere[facility] plasma calcium measurement (mass/volume)2019-10-19 05:33:00* Test Item Value Reference Range Interpretation Comments Calcium Level (test code = 36860-4) 9.4 8.4-10.2 [facility]ererum [facility] plasma triglyceride measurement (mass/volume)2019-10-19 05:33:00* Test Item Value Reference Range Interpretation Comments Triglycerides Level (test code = 2571-8) 100 0-149 [facility]ererum [facility] plasma cholesterol measurement (mass/volume)2019-10-19 05:33:00* Test Item Value Reference Range Interpretation Comments Cholesterol Level (test code = 2093-3) 129 0-199 Less than 200 mg/dL Low Sxjo390 - 239 mg/dL Borderline Pzhl346 m g/dl and greater High Risk [facility]ererum [facility] plasma cholesterol in LDL measurement (mass/volume) 2019-10-19 05:33:00* Test Item Value Reference Range Interpretation Comments LDL Cholesterol (test code = 2089-1) 72 60-130 [facility]ererum [facility] cholesterol in HDL measurement (mass/volume)2019-10-19 05:33:00* Test Item Value Reference Range Interpretation Comments HDL Cholesterol (test code = 2085-9) 37 40-60 [facility]ererum [facility] plasma total cholesterol/cholesterol in HDL mass uejfi1482-52-57 05:33:00* Test Item Value Reference Range Interpretation Comments Cholesterol/HDL Ratio (test code = 9830-1) 3.5 3.9-4.7 [facility]ererum [facility] plasma creatine kinase measurement (enzymatic activity/volume)2019-10-19 05:33:00* Test Item Value Reference Range Interpretation Comments Creatine Kinase (test code = 2157-6) 150 30-200 [facility]ererum [facility] plasma creatine kinase MB measurement (mass/volume)2019-10-19 05:33:00* Test Item Value Reference Range Interpretation Comments Creatine Kinase MB (test code = 58877-9) 1.90 0-5.0 [facility] TexasTroponin I measurement by highly sensitive enzyme eavdwxiyeyj3463-66-17 05:33:00* Test Item Value Reference Range Interpretation Comments Troponin I (test code = 67556-6) < 0.001 0-0.300 [facility] TexasCT CHEST I4467-98-67 10:55:00 [facility] [address] [place] [address] Patient Name: ROBYN BRIDGES MR #: [id number] : 1960 Age/Sex: 59/M Req #: [id number] Adm Physician: DENIS NJ MD Ordered by: DENIS NJ MD Report #: [id number] Location: MED/SURG R oom/Bed: 110-1 Procedure: [id number] CT/CT C HEST W Exam Date: 10/18/19 Exam Time: 1020 REPORT STATUS: Signed EXAM: CT Chest WITH contrast 10/18/2019 10:03 AM INDICATION: CP [id number] COM PARISON: Chest radiograph 10/18/2019 TECHNIQUE: Chest was scanned utilizing a multidetector helical scanner from the lung apex through the level of the ad renal glands after administration of IV contrast. Coronal and sagittal reforma tions were obtained. IV CONTRAST: 100 mL of Isovue-370 ORAL CONTRAST: None COMPLICATIONS: None RADIATION D OSE: Total DLP: 600.7 mGy*cm Estimated effective dose: (DLP x 0.01 5 x size factor) mSv CTDIvol has been reviewed. It is below the limits se t by the Radiation Protocol Committee (RPC). FINDINGS: LINES/ TUBES: None. LUNGS AND AIRWAYS: Minimal central bilateral peribronchial wall thi ckening. No consolidations or groundglass opacities. Airways are patent witho ut bronchiectasis. PLEURA: The pleural spaces are clear. HEART AND M EDIASTINUM: The thyroid gland is normal. No mediastinal, hilar or axillary ly mphadenopathy. The heart is normal in size. There is no pericardial effusion. No coronary artery calcifications. The thoracic aorta and pulmonary arterie s are unremarkable. UPPER ABDOMEN: Unremarkable. BONES: The visualized bony thorax is within normal limits. SOFT TISSUES: Unremarkable. IMPR ESSION: Minimal bilateral central peribronchial wall thickening suggestive of bronchitis and correlates with chest x-ray findings. Otherwise, no CT finding s to suggest interstitial edema, bacterial or viral pneumonia. Thoracic a deisy appears unremarkable on limited evaluation. No coronary artery calcificat ions. Signed by: Dr. Tran Briscoe M.D. on 10/18/2019 11:02 AM Dictated By: TRAN BRISCOE MD 110 Transcribed By: NAYELY on 10/18/19 110 COPY TO: DENIS NJ MD Hemoglobin A1c Xmnqzcc5303-13-88 09:30:00* Test Item Value Reference Range Interpretation Comments Hemoglobin A1c Percent (test code = Hemoglobin A1c Percent) 5.6 4.0-7.0 [facility] TexasMagnesium Ekonp6623-34-62 08:21:00* Test Item Value Reference Range Interpretation Comments Magnesium Level (test code = 86398-0) 1.9 1.3-2.1 [facility] TexasTotal Kiwhmeoeo2809-09-59 08:21:00* Test Item Value Reference Range Interpretation Comments Total Bilirubin (test code = 1975-2) 1.0 0.2-1.2 [facility] TexasAspartate Amino Transf (AST/SGOT) 2019-10-18 08:21:00* Test Item Value Reference Range Interpretation Comments Aspartate Amino Transf (AST/SGOT) (test code = Aspartate Amino Transf (AST/SGOT)) 25 5-34 [facility] TexasAlanine Aminotransferase (ALT/SGPT) 2019-10-18 08:21:00* Test Item Value Reference Range Interpretation Comments Alanine Aminotransferase (ALT/SGPT) (test code = 1742-6) 27 0-55 [facility] TexasTotal Bixtdxv6700-97-72 08:21:00* Test Item Value Reference Range Interpretation Comments Total Protein (test code = 2885-2) 7.4 6.5-8.1 [facility] TexasAlbumin2020-03-28 08:21:00* Test Item Value Reference Range Interpretation Comments Albumin (test code = 1751-7) 4.5 3.5-5.0 [facility] TexasGlobulin2020-03-28 08:21:00* Test Item Value Reference Range Interpretation Comments Globulin (test code = 10978-3) 2.9 2.3-3.5 [facility] TexasAlbumin/Globulin Foudq7624-74-40 08:21:00 * Test Item Value Reference Range Interpretation Comments Albumin/Globulin Ratio (test code = 1759-0) 1.6 0.8-2.0 [facility] TexasAlkaline Bgiihtvjbbm0981-54-52 08:21:00* Test Item Value Reference Range Interpretation Comments Alkaline Phosphatase (test code = 6768-6) 85 40-150 [facility] TexasCHEST SINGLE (PORTABLE)2019-10-18 08:15:00 [place] [address] Patient Name: ROBYN BRIDGES MR #: [id number] : 1960 Age/Sex: 59/M Req #: [id number] Adm Physician: Ordered by: MADI TAVERA MD Report #: [id number] Location: ER Room/Bed: Procedure: [id number] DX/C HEST SINGLE (PORTABLE) Exam Date: 10/18/19 Exam Time : 0800 REPORT STATUS: Signed EXA MINATION: CHEST SINGLE (PORTABLE) INDICATION: CP [id number] 0800 COMPARISON: 12/12/2018 FINDINGS: AP view TU BES and LINES: None. LUNGS: Lungs are well inflated. Mild bilateral rod r and lower lobes interstitial opacities. No lobar consolidations. PLEU RA: No pleural effusion or pneumothorax. HEART AND MEDIASTINUM: The left ventricle appeared mildly prominent. BONES AND SOFT TISSUES: No acute os seous lesion. Soft tissues are unremarkable. UPPER ABDOMEN: No free air under the diaphragm. IMPRESSION: Prominent left ventricle with findi ngs suggestive of central pulmonary congestion. Viral infection or small airwa y disease can have a similar appearance. Signed by: Dr. Tran Briscoe M.D. on 10/18/2019 8:17 AM Dictated By: TRAN BRISCOE MD 6 [place]j scribed By: NAYELY on 10/18/19816 COPY TO: MADI TAVERA MD Prothrombin Aias1199-83-72 08:12:00* Test Item Value Reference Range Interpretation Comments Prothrombin Time (test code = 5902-2) 13.4 11.9-14.5 [facility] TexasProthromb Time International Ratio 2019-10-18 08:12:00* Test Item Value Reference Range Interpretation Comments Prothromb Time International Ratio (test code = 6301-6) 0.96 Oral Anticoagulant Therapy INR Values:1. Low Intensity Therapy 1.5 - 2.02 . Moderate Intensity Therapy 2.0 - 3.03. High Intensity Therapy(1) 2.5 - 3. 54. High Intensity Therapy(2) 3.0 - 4.05. Panic Value INR > 5.0 [facility] TexasActivated Partial Thromboplast Time 2019-10-18 08:12:00* Test Item Value Reference Range Interpretation Comments Activated Partial Thromboplast Time (test code = 47793-8) 27.6 23.8-35.5 [facility] TexasProthrombin time (PT) in platelet poor plasma by coagulation negpn1273-17-80 07:50:00* Test Item Value Reference Range Interpretation Comments Prothrombin Time (test code = 5902-2) 13.4 11.9-14.5 [facility] TexasINR in Platelet poor plasma by Coagulation xvckn1440-20-09 07:50:00* Test Item Value Reference Range Interpretation Comments Prothromb Time International Ratio (test code = 6301-6) 0.96 Oral Anticoagulant Therapy INR Values:1. Low Intensity Therapy 1.5 - 2.02 . Moderate Intensity Therapy 2.0 - 3.03. High Intensity Therapy(1) 2.5 - 3. 54. High Intensity Therapy(2) 3.0 - 4.05. Panic Value INR > 5.0 [facility] TexasActivated partial thromboplastin time (aPTT) in platelet poor plasma by coagulation xhhpe2931-16-37 07:50:00* Test Item Value Reference Range Interpretation Comments Activated Partial Thromboplast Time (test code = 10762-1) 27.6 23.8-35.5 [facility] TexasFluoroscopic procedure less than one hour nxogiuvv2858-28-07 07:50:00* Test Item Value Reference Range Interpretation Comments Hemoglobin A1c Percent (test code = Hemoglobin A1c Percent) 5.6 4.0-7.0 [facility] magnesium measurement (mass/volume)2019-10-18 07:50:00* Test Item Value Reference Range Interpretation Comments Magnesium Level (test code = 62201-9) 1.9 1.3-2.1 [facility]ererum [facility] plasma total bilirubin measurement (mass/volume)2019-10-18 07:50:00* Test Item Value Reference Range Interpretation Comments Total Bilirubin (test code = 1975-2) 1.0 0.2-1.2 [facility] TexasFluoroscopic procedure less than one hour xprezhka2180-75-24 07:50:00* Test Item Value Reference Range Interpretation Comments Aspartate Amino Transf (AST/SGOT) (test code = Aspartate Amino Transf (AST/SGOT)) 25 5-34 [facility]ererum or plasma alanine aminotransferase measurement (enzymatic activity/volume)2019-10-18 07:50:00* Test Item Value Reference Range Interpretation Comments Alanine Aminotransferase (ALT/SGPT) (test code = 1742-6) 27 0-55 [facility]ererum or plasma protein measurement (mass/volume)2019-10-18 07:50:00* Test Item Value Reference Range Interpretation Comments Total Protein (test code = 2885-2) 7.4 6.5-8.1 [facility]ererum [facility] plasma albumin measurement (mass/volume)2019-10-18 07:50:00* Test Item Value Reference Range Interpretation Comments Albumin (test code = 1751-7) 4.5 3.5-5.0 [facility] TexasPlasma globulin measurement (mass/volume) 2019-10-18 07:50:00* Test Item Value Reference Range Interpretation Comments Globulin (test code = 35458-8) 2.9 2.3-3.5 [facility]rum [facility] plasma albumin/globulin mass btkbi0762-66-79 07:50:00* Test Item Value Reference Range Interpretation Comments Albumin/Globulin Ratio (test code = 1759-0) 1.6 0.8-2.0 [facility]ererum or plasma alkaline phosphatase measurement (enzymatic activity/volume)2019-10-18 07:50:00* Test Item Value Reference Range Interpretation Comments Alkaline Phosphatase (test code = 6768-6) 85 40-150 [facility]ertress [facility] - Treadmill GFPE8152-02-50 09:03:00 [facility] [address] [place] [address] Patient Name : ROBYN BRIDGES MR #: [id number] : 1960 Age/Sex: 58/M Adm Physician : DENIS NJ MD Admit Date : 12/12/18 Location : [facility] Room/Bed : [place] [address] REPORT: Myoview S tress Test DATE OF STUDY: 12/13/2018 08:59:00 Stress Test - Treadmill ONLY INTERPRETING AND SUPERVISING PHYSICIAN: Perez Nelson MD INDICATION: Chest pain. INTERPRETATION: At rest, heart rate w as 68 and blood pressure 147/76. Resting EKG reveals normal sinus rhythm with poor R-wave progression in precordial leads. The patient underwent Herb pro tocol treadmill stress test. After a total of 4 minutes and 46 seconds of Bru ce protocol, the patient achieved a peak heart rate of 144 beats per minute an d a peak blood pressure of 172/88. The patient achieved 7 METS and heart rate achieved was 89% of maximum predicted. There were no significant ST changes or arrhythmias throughout stress or recovery. Myocardial perfusion reveals norm al rest and stress perfusion. Gated images demonstrate preserved left ventric ular systolic function, normal regional wall motion, and left ventricular ejec tion fraction of 61%. CONCLUSION: 1. Normal hemodynamic response to t readmill stress test with fair exercise capacity achieving 7 METS. 2. Bettina l electrocardiographic response to treadmill stress. 3. Normal myocardial perf usion at rest and stress. 4. Preserved left ventricular systolic function with LVEF of 61%. MD DANN Hardin/FOUZIA 09:2 2:40 /[id number] Signature Date Dictated By : PEREZ NEWBERRY MD Transcribed By: SONDRAL on 12/14/18 <Electronically signed by PEREZ NEWBERRY MD><<Signature on File>>12/15/18 9703 COPY TO: Creatine Kinase TJ0609-15-01 07:39:00* Test Item Value Reference Range Interpretation Comments Creatine Kinase MB (test code = 36904-3) 1.70 0-5.0 [facility] TexasTroponin M4019-17-16 07:39:00* Test Item Value Reference Range Interpretation Comments Troponin I (test code = FED3469) < 0.001 0-0.300 [facility] TexasTriglycerides Szthr4885-32-43 07:38:00* Test Item Value Reference Range Interpretation Comments Triglycerides Level (test code = 2571-8) 85 0-149 [facility] TexasCholesterol Mvphk9606-47-08 07:38:00* Test Item Value Reference Range Interpretation Comments Cholesterol Level (test code = 2093-3) 114 0-199 Less than 200 mg/dL Low Xfsi490 - 239 mg/dL Borderline Ledp797 m g/dl and greater High Risk [facility] TexasLDL Wgxdqprefkp1320-79-36 07:38:00* Test Item Value Reference Range Interpretation Comments LDL Cholesterol (test code = 2089-1) 59 60-130 L [facility] TexasHDL Txkwadzxbyn4751-55-20 07:38:00* Test Item Value Reference Range Interpretation Comments HDL Cholesterol (test code = 2085-9) 38 40-60 L [facility] TexasCholesterol/HDL Tbsxo0544-67-61 07:38:00 * Test Item Value Reference Range Interpretation Comments Cholesterol/HDL Ratio (test code = 9830-1) 3.0 3.9-4.7 L [facility] TexasCreatine Sboanw2067-89-91 07:38:00* Test Item Value Reference Range Interpretation Comments Creatine Kinase (test code = 2157-6) 97 30-200 [facility] TexasThyroid Stimulating Hormone (TSH) 2018-12-12 16:15:00* Test Item Value Reference Range Interpretation Comments Thyroid Stimulating Hormone (TSH) (test code = 48120-1) 0.870 0.350-4.940 [facility] TexasB-Type Natriuretic Tqhdpqi5647-16-86 16:02:00* Test Item Value Reference Range Interpretation Comments B-Type Natriuretic Peptide (test code = 16037-1) 23.2 0-100 [facility] TexasCHEST SINGLE (PORTABLE)2018-12-12 15:55:00 [place] [address] Patient Name: ROBYN BRIDGES MR #: [id number] : 1960 Age/Sex: 58/M Req #: [id number] Adm Physician: Ordered by: JOSE MIDDLETON 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 History: Left-sided chest pain. Robert rison: None available. Findings: The cardiomediastinal silhouette and pulmo nary vasculature are within normal limits for a portable exam. There is no foc al consolidation or pleural effusion. There are no acute osseous or soft tiss ue abnormalities. Impression: No acute cardiopulmonary abnormality. Signed by: Jose Gonzalez on 12/12/2018 3:55 PM Dictated By: JOSE Barry MD 53 Transcribed B y: NAYELY on 12/12/181554 COPY TO: JOSE MIDDLETON NP Sodium [id number] 15:54:00* Test Item Value Reference Range Interpretation Comments Sodium Level (test code = 2951-2) 137 136-145 [facility] [id number] 15:54:00* Test Item Value Reference Range Interpretation Comments Potassium Level (test code = 2823-3) 3.4 3.5-5.1 L [facility] TexasChloride [id number] 15:54:00* Test Item Value Reference Range Interpretation Comments Chloride Level (test code = 2075-0) 101 98-107 [facility] TexasCarbon Dioxide [id number] 15:54:00* Test Item Value Reference Range Interpretation Comments Carbon Dioxide Level (test code = 2028-9) 27 22-29 [facility] TexasAnion [id number] 15:54:00* Test Item Value Reference Range Interpretation Comments Anion Gap (test code = 90402-2) 12.4 8-16 [facility] TexasBlood Urea Sshcngle9975-68-12 15:54:00* Test Item Value Reference Range Interpretation Comments Blood Urea Nitrogen (test code = 3094-0) 12 7-26 [facility] TexasCreatinine2019-05-23 15:54:00* Test Item Value Reference Range Interpretation Comments Creatinine (test code = 2160-0) 1.09 0.72-1.25 [facility] TexasBUN/Creatinine Jcaea1923-51-11 15:54:00* Test Item Value Reference Range Interpretation Comments BUN/Creatinine Ratio (test code = 3097-3) 11 6-25 [facility] TexasEstimat Glomerular Filtration Rate 2018-12-12 15:54:00* Test Item Value Reference Range Interpretation Comments Estimat Glomerular Filtration Rate (test code = 543500797) > 60 >60 Ranges were taken from the National Kidney Disease Education Program and the [facility] literature.Reference ranges:60 or greater: Ndjqgt30-07 ( for 3 consecutive months): Chronic kidney disease 15 or less: Kidney failureWoman's Hospital of TexasGlucose Rqgxb2843-49-32 15:54:00* Test Item Value Reference Range Interpretation Comments Glucose Level (test code = WVC7166) 103 74-118 [facility] TexasCalcium Zyech6224-86-83 15:54:00* Test Item Value Reference Range Interpretation Comments Calcium Level (test code = 63261-8) 9.7 8.4-10.2 [facility] TexasMagnesium Pcquo0845-94-99 15:54:00* Test Item Value Reference Range Interpretation Comments Magnesium Level (test code = 95379-4) 2.2 1.3-2.1 H [facility] Gathiratm5552-59-43 15:54:00* Test Item Value Reference Range Interpretation Comments Total Bilirubin (test code = 1975-2) 0.9 0.2-1.2 [facility] TexasAspartate Amino Transf (AST/SGOT) 2018-12-12 15:54:00* Test Item Value Reference Range Interpretation Comments Aspartate Amino Transf (AST/SGOT) (test code = Aspartate Amino Transf (AST/SGOT)) 17 5-34 [facility] TexasAlanine Aminotransferase (ALT/SGPT) 2018-12-12 15:54:00* Test Item Value Reference Range Interpretation Comments Alanine Aminotransferase (ALT/SGPT) (test code = 1742-6) 19 0-55 [facility] TexasTotal Eklpzhb1077-33-43 15:54:00* Test Item Value Reference Range Interpretation Comments Total Protein (test code = 2885-2) 7.1 6.5-8.1 [facility] TexasAlbumin2019-05-23 15:54:00* Test Item Value Reference Range Interpretation Comments Albumin (test code = 1751-7) 4.2 3.5-5.0 [facility] TexasGlobulin2019-05-23 15:54:00* Test Item Value Reference Range Interpretation Comments Globulin (test code = 01671-2) 2.9 2.3-3.5 [facility] TexasAlbumin/Globulin Drcix1393-54-75 15:54:00 * Test Item Value Reference Range Interpretation Comments Albumin/Globulin Ratio (test code = 1759-0) 1.4 0.8-2.0 [facility] TexasAlkaline Diithmctodh3438-12-62 15:54:00* Test Item Value Reference Range Interpretation Comments Alkaline Phosphatase (test code = 6768-6) 86 40-150 [facility] TexasUrine [id number] 15:49:00* Test Item Value Reference Range Interpretation Comments Urine WBC (test code = 5821-4) 0-5 0-5 [facility] TexasUrine [id number] 15:49:00* Test Item Value Reference Range Interpretation Comments Urine RBC (test code = 10588-9) 0-5 0-5 [facility] TexasUrine Mcxbffep0311-74-01 15:49:00* Test Item Value Reference Range Interpretation Comments Urine Bacteria (test code = 50460-3) NONE NONE [facility] TexasU[facility] Epithelial Tzavq7686-27-19 15:49:00 * Test Item Value Reference Range Interpretation Comments Urine Epithelial Cells (test code = 30340-9) FEW NONE [facility] TexasUrine Transitional Epithelial Cells 2018-12-12 15:49:00* Test Item Value Reference Range Interpretation Comments Urine Transitional Epithelial Cells (test code = 8249-5) RARE NONE [facility] TexasProthrombin Mqbd6157-34-26 15:44:00* Test Item Value Reference Range Interpretation Comments Prothrombin Time (test code = 5902-2) 13.1 11.9-14.5 [facility] TexasProthromb Time International Ratio 2018-12-12 15:44:00* Test Item Value Reference Range Interpretation Comments Prothromb Time International Ratio (test code = 6301-6) 0.94 Oral Anticoagulant Therapy INR Values:1. Low Intensity Therapy 1.5 - 2.02 . Moderate Intensity Therapy 2.0 - 3.03. High Intensity Therapy(1) 2.5 - 3. 54. High Intensity Therapy(2) 3.0 - 4.05. Panic Value INR > 5.0 [facility] TexasActivated Partial Thromboplast Time 2018-12-12 15:44:00* Test Item Value Reference Range Interpretation Comments Activated Partial Thromboplast Time (test code = 75048-1) 28.1 23.8-35.5 [facility] TexasUrine Jrjll9240-05-31 15:30:00* Test Item Value Reference Range Interpretation Comments Urine Color (test code = 5778-6) YELLOW YELLOW [facility] TexasUrine Hgozbpa4448-50-64 15:30:00* Test Item Value Reference Range Interpretation Comments Urine Clarity (test code = 61182-7) CLEAR CLEAR [facility] TexasUrine Specific Lhldhxk8469-28-77 15:30:00 * Test Item Value Reference Range Interpretation Comments Urine Specific [place] (test code = 5811-5) 1.005 1.010-1.02 5 L [facility] TexasUrine [id number] 15:30:00* Test Item Value Reference Range Interpretation Comments Urine pH (test code = 30865-6) 5.5 5-7 [facility] TexasU[facility] Leukocyte Otwwpyyu3131-20-06 15:30:00* Test Item Value Reference Range Interpretation Comments Urine Leukocyte Esterase (test code = 28671-1) NEGATIVE NEGATIV E [facility] TexasUrine Upwqudd9021-91-24 15:30:00* Test Item Value Reference Range Interpretation Comments Urine Nitrite (test code = 59899-9) NEGATIVE NEGATIVE [facility] TexasU[facility] Ufjdtjr4220-50-53 15:30:00* Test Item Value Reference Range Interpretation Comments Urine Protein (test code = 48316-8) NEGATIVE NEGATIVE [facility] TexasUrine Glucose (UA)2018-12-12 15:30:00* Test Item Value Reference Range Interpretation Comments Urine Glucose (UA) (test code = 93750-4) NEGATIVE NEGATIVE [facility] TexasUrine Cpwapxu1919-08-46 15:30:00* Test Item Value Reference Range Interpretation Comments Urine Ketones (test code = 29964-5) NEGATIVE NEGATIVE [facility] TexasU[facility] Lwknnvyfkbyw3740-76-84 15:30:00* Test Item Value Reference Range Interpretation Comments Urine Urobilinogen (test code = 50938-9) 0.2 0.2-1 [facility] TexasU[facility] Lhkqzhdau6765-63-82 15:30:00* Test Item Value Reference Range Interpretation Comments Urine Bilirubin (test code = 1977-8) NEGATIVE NEGATIVE [facility] TexasUrine Cxiwe5902-97-12 15:30:00* Test Item Value Reference Range Interpretation Comments Urine Blood (test code = 39928-0) TRACE NEGATIVE [facility] TexasWhite Blood Qexnq7573-36-26 15:27:00* Test Item Value Reference Range Interpretation Comments White Blood Count (test code = 6690-2) 9.48 4.8-10.8 [facility] TexasRed Blood Ovzjp7699-48-91 15:27:00* Test Item Value Reference Range Interpretation Comments Red Blood Count (test code = 789-8) 4.31 4.3-5.7 [facility] TexasHemoglobin2019-05-23 15:27:00* Test Item Value Reference Range Interpretation Comments Hemoglobin (test code = 52776-0) 14.2 14.0-18.0 [facility] TexasHematocrit2019-05-23 15:27:00* Test Item Value Reference Range Interpretation Comments Hematocrit (test code = 4544-3) 41.3 38.2-49.6 [facility] TexasMean Corpuscular Gfzenv1758-31-57 15:27:00* Test Item Value Reference Range Interpretation Comments Mean Corpuscular Volume (test code = 787-2) 95.8 81-99 [facility] TexasMean Corpuscular Iybmeakbxz4907-57-71 15:27:00* Test Item Value Reference Range Interpretation Comments Mean Corpuscular Hemoglobin (test code = 785-6) 32.9 28-32 H [facility] TexasMean Corpuscular Hemoglobin Concent 2018-12-12 15:27:00* Test Item Value Reference Range Interpretation Comments Mean Corpuscular Hemoglobin Concent (test code = 786-4) 34.4 31-35 [facility] TexasRed Cell Distribution Yxvul4343-35-11 15:27:00* Test Item Value Reference Range Interpretation Comments Red Cell Distribution Width (test code = 91107-9) 12.6 11.7 -14.4 [facility] TexasPlatelet Ajetn0881-63-33 15:27:00* Test Item Value Reference Range Interpretation Comments Platelet Count (test code = 777-3) 234 140-360 [facility] TexasNeutrophils (%) (Auto)2018-12-12 15:27:00 * Test Item Value Reference Range Interpretation Comments Neutrophils (%) (Auto) (test code = 12755-8) 67.7 38.7-80.0 [facility] TexasLymphocytes (%) (Auto)2018-12-12 15:27:00 * Test Item Value Reference Range Interpretation Comments Lymphocytes (%) (Auto) (test code = 736-9) 22.6 18.0-39.1 [facility] TexasMonocytes (%) (Auto)2018-12-12 15:27:00* Test Item Value Reference Range Interpretation Comments Monocytes (%) (Auto) (test code = 5905-5) 7.8 4.4-11.3 [facility] TexasEosinophils (%) (Auto)2018-12-12 15:27:00 * Test Item Value Reference Range Interpretation Comments Eosinophils (%) (Auto) (test code = 713-8) 1.2 0.0-6.0 [facility] TexasBasophils (%) (Auto)2018-12-12 15:27:00* Test Item Value Reference Range Interpretation Comments Basophils (%) (Auto) (test code = 706-2) 0.4 0.0-1.0 [facility] TexasIM GRANULOCYTES %2018-12-12 15:27:00* Test Item Value Reference Range Interpretation Comments IM GRANULOCYTES % (test code = IM GRANULOCYTES %) 0.3 0.0- 1.0 [facility] TexasNeutrophils # (Auto)2018-12-12 15:27:00* Test Item Value Reference Range Interpretation Comments Neutrophils # (Auto) (test code = 751-8) 6.4 2.1-6.9 [facility] TexasLymphocytes # (Auto)2018-12-12 15:27:00* Test Item Value Reference Range Interpretation Comments Lymphocytes # (Auto) (test code = 69888-8) 2.1 1.0-3.2 [facility] TexasMonocytes # (Auto)2018-12-12 15:27:00* Test Item Value Reference Range Interpretation Comments Monocytes # (Auto) (test code = 742-7) 0.7 0.2-0.8 [facility] TexasEosinophils # (Auto)2018-12-12 15:27:00* Test Item Value Reference Range Interpretation Comments Eosinophils # (Auto) (test code = 711-2) 0.1 0.0-0.4 [facility] TexasBasophils # (Auto)2018-12-12 15:27:00* Test Item Value Reference Range Interpretation Comments Basophils # (Auto) (test code = 704-7) 0.0 0.0-0.1 [facility] TexasAbsolute Immature Granulocyte (auto 2018-12-12 15:27:00* Test Item Value Reference Range Interpretation Comments Absolute Immature Granulocyte (auto (dayan t code = Absolute Immature Granulocyte (auto) 0.03 0-0.1 [facility]
== END 2020-04-17 20:03 | disposition home or self-care (01) ==
LOC: FSED 18:14
DX: T36.8X5A Adverse effect of other systemic antibiotics, initial encounter (principal); M25.512 Pain in left shoulder; K57.92 Diverticulitis of intestine, part unspecified, without perforation or abscess without bleeding; I10 Essential (primary) hypertension; E78.5 Hyperlipidemia, unspecified; E03.9 Hypothyroidism, unspecified; J44.9 Chronic obstructive pulmonary disease, unspecified; I25.2 Old myocardial infarction
CPT/HCPCS: 80053; 84484; 85025; 93005; 99284

== ENCOUNTER → 2020-06-21 | Day surgery (SDC) | payer MEDICARE ==
[2020-06-16 08:36] LABS: BASOPHILS % 0.5 % (0.0-1.0); EOSINOPHILS # (AUTO) 0.1 (0.0-0.4); EOSINOPHILS % 0.8 % (0.0-6.0); HEMATOCRIT 42.6 % (38.2-49.6); LYMPHOCYTES # (AUTO) 1.6 (1.0-3.2); LYMPHOCYTES % 21.3 % (18.0-39.1); MEAN CORPUSCULAR HGB CONC 35.2 g/dL (31-35); MEAN CORPUSCULAR VOLUME 93.8 fL (81-99); MONOCYTES # (AUTO) 0.6 (0.2-0.8); MONOCYTES % 7.7 % (4.4-11.3); NEUTROPHILS # (AUTO) 5.2 (2.1-6.9); NEUTROPHILS % 69.4 % (38.7-80.0); PLATELET COUNT 241 x10e3/uL (140-360); RED BLOOD COUNT 4.54 x10e6/uL (4.3-5.7); RED CELL DISTRIBUTION WIDTH 12.7 % (11.7-14.4)
[~2020-06-21] MED LIST changes: +BACTRIM DS TAB1 EACH PO; +BETHANECHOL CHLO1 GM PO; +FENTANYL CITRATE/PF 100MCG/2 ML INJ ONE; +HYOSCYAMINE 0.125 MG TAB ONE; +LIDOCAINE HCL 2% LOCAL INJ 5 ML SDV VIAL INJ ONE; +MIDAZOLAM HCL 2 MG/2 ML VIAL ONE; +PROPOFOL IV EMULSION 10 MG/ML 20 ML VIAL ONE; +VIT D PO
[2020-06-21 09:50] VITALS: BP 133/67
== END | disposition home or self-care (01) ==
LOC: OR 06:04
PROVIDERS: ATTEND Internal Medicine Gastroenterology
DX: K57.92 Diverticulitis of intestine, part unspecified, without perforation or abscess without bleeding (principal); K63.5 Polyp of colon; K64.8 Other hemorrhoids; K60.2 Anal fissure, unspecified; I10 Essential (primary) hypertension; J44.9 Chronic obstructive pulmonary disease, unspecified; E78.5 Hyperlipidemia, unspecified; Z01.810 Encounter for preprocedural cardiovascular examination; Z01.812 Encounter for preprocedural laboratory examination; Z20.828 Contact with and (suspected) exposure to other viral communicable diseases; Z79.82 Long term (current) use of aspirin; Z87.891 Personal history of nicotine dependence
CPT/HCPCS: 36415; 45385; 85025; 88305; 93005; J2001; J2250; J2704; J3010; U0002; 45378